=== PATIENT | male | born 1955 | race Caucasian/White ===

== ENCOUNTER 2017-02-11 10:36 | Emergency (ER) | payer MEDICARE ==
[~2017-02-11] VITALS: Ht 185.4 cm; Wt 85.0 kg
[2017-02-11 10:39] VITALS: BP 149/100; PULSE 100; RESP 16; O2SAT 96
[2017-02-11] MEDS ORDERED: HYDR-4003 PO (10:42)
--- NOTE | 2017-02-11 10:47 | ED.REPORT ---
HPI-Chest Pain 40 and Over Date of Service Feb 11, 2017 ED Provider: Dr. Muir Pt is a 61 y/o male w/ a hx of presumed metastatic lung CA, every-day smoking, chronic back pain, presenting to the ED c/o worsening intermittent SOB onset last night. He c/o associated right-sided chest discomfort which is exacerbated by moderate-heavy exertion, orthopnea, anxiety, back pain which is chronic. He was diagnosed with presumed metastatic lung cancer on 12/28/[address] scan and since then has been experiencing intermittent episodes of SOB and mild-moderate chest discomfort which are often accompanied by anxiety. His CA diagnosis came after he went to his PCP Dr. Becker regarding his back pain at which time a CT was ordered. He has not met with an oncologist yet or had any sort of workup regarding his cancer because his PCP told him it was "too far progressed to treat and there is not much of a point to work it up". Records indicate he declined further workup/biopsy/oncology appointment/specific diagnosis multiple times confirming he wants quality of life rather than quantity of life. He was prescribed Vicodin and anti-anxiety medication has not been working as well as it usually does. Pt denies cough, sputum, fever, chills, nausea, vomiting, diarrhea. Nursing Notes Stated Complaint: CANCER-PAIN AND CANNOT SLEEP Chief Complaint: Chest Pain-Non Cardiac Nature Nursing Notes Reviewed: Yes Allergies: Coded Allergies: No Known Allergies (Unverified , 02/11/17) Scheduled Hydrocodone-Acetaminophen 5-325 mg (Hydrocodone-Acetaminophen 5-325 mg) 1 Each Tablet 1-2 TAB PO Q6H General Time Seen by MD: 10:47 Chief Complaint Shortness of breath Hx Obtained From: Patient Arrived By: Walk-in Sudden in Onset?: No Onset Occurred: 1 day ago Symptom Duration: Intermittent Location: : Chest right Quality: Painful Severity: Current: Mild Severity: Maximum: Moderate Recent Healthcare: Recent doctor visit, Recent testing, Previous diagnosis, Prior workup Similar Sx Previous: Yes Past Medical History Past Medical History Presumed metastatic lung cancer Chronic back pain Past Surgical History Appendectomy Smoking History Former Smoker Social History Alcohol Use: Denies alcohol use Drug Use: THC Ambulatory Status Independent Review of Systems Constitutional: Denies: Chills, Fever Respiratory: Reports: Shortness of breath, Denies: Non-productive cough Cardiovascular: Reports: Chest pain, Orthopnea, Denies: Edema, Palpitations GI: Denies: Abdominal pain, Diarrhea, Nausea, Vomiting Musculoskeletal: Reports: Back pain, Denies: Extremity pain Psychiatric: Reports: Anxiety Complete sys rev & neg: except as marked. Physical Exam Initial Vital Signs Vital Signs (First) Date Time Temp Pulse Resp B/P Pulse Ox O2 Delivery O2 Flow Rate FiO2 02/11/17 10:39 35.9 100 16 149/100 96 Room Air 02/11/17 12:11 2 Initial VS: Reviewed, Vital signs abnormal Head / Eyes: Atraumatic, Normocephalic, PERRL ENT: Mucous membranes moist, Conjunctiva normal, No scleral icterus Neck: Supple, Full range of motion Extremities: Vascular intact, Neuro intact, No swelling, No tenderness Skin: Warm, Dry, No cyanosis Neurologic: Alert, Oriented, Nonfocal Psychiatric: Mood/affect normal, Behavior normal, Normal thought content General/Constitutional: Awake, Alert, No acute distress, Cooperative, Not toxic appearing Respiratory / Chest: Atraumatic, No retractions, No stridor, No chest tenderness, No chest wall deformity, No crepitus Resp Distress / Stridor: Positive: Resp distress mild Absent breath sounds right lung Cardiovascular: Heart rate NL, Regular rhythm, Heart sounds NL, No gallop, No murmurs, No rubs, Cap refill not delayed, Peripheral circulation NL Abdomen: Atraumatic, Soft, Non-tender, No guarding, No rebound, No palpable mass Interpretation & Diagnostics Lab Results Interpretation Result Diagram: 02/11/17 1155 02/11/17 1155 Test 02/11/17 11:55 02/11/17 14:46 White Blood Count 10.3th/mm3 (3.8-10.1) Red Blood Count 5.93mil/mm3 (4.40-5.80) Hemoglobin 17.1g/dL (13.8-17.2) Hematocrit 50.5% (41.0-50.0) Mean Corpuscular Volume 85.2fL (81-100) Mean Corpuscular Hemoglobin 28.8pg (27.0-35.0) Mean Corpuscular Hemoglobin Concent 33.9% (32.0-37.0) Red Cell Distribution Width 13.9% (12.3-15.4) Platelet Count 464bil/L (150-400) Neutrophils (%) (Auto) 76.3% (40-74) Lymphocytes (%) (Auto) 11.8% (14-46) Monocytes (%) (Auto) 8.2% (4-12) Eosinophils (%) (Auto) 3.3% (0-5) Basophils (%) (Auto) 0.3% (0-3) Prothrombin Time 10.2sec (8.1-12.5) Prothromb Time International Ratio 0.95ratio Hold Urine Received (Received) Sodium Level 132mEq/L (134-144) Potassium Level 4.3mEq/L (3.5-5.2) Chloride Level 92mEq/L (97-108) Carbon Dioxide Level 21mmol/L (18-29) Blood Urea Nitrogen 12mg/dL (6-24) Creatinine 0.69mg/dL (0.76-1.27) Estimat Glomerular Filtration Rate 125mL/min (>59) Glucose Level 107mg/dL (60-99) Calcium Level 10.1mg/dL (8.5-10.1) Magnesium Level 2.1mg/dL (1.6-2.6) Total Bilirubin 0.4mg/dL (0.0-1.2) Aspartate Amino Transf (AST/SGOT) 20U/L (0-50) Alanine Aminotransferase (ALT/SGPT) 10U/L (0-44) Alkaline Phosphatase 107U/L (25-160) Lactate Dehydrogenase 283U/L (100-190) Troponin T 0.010ug/L (0.0-0.011) Total Protein 9.2g/dL (6.4-8.4) Albumin 4.3g/dL (3.4-5.0) Body Fluid Source Pleural fluid Body Fluid Color Red (Clear) Body Fluid Appearance Hazy Body Fluid WBC 2813/mm3 Body Fluid RBC 93689/mm3 Body Fluid Polynuclear WBCs 2% Body Fluid Lymphocytes 85% Body Fluid Monocytes 8% Body Fluid Eosinophils 5% Body Fluid Basophils 0% Body Fluid Lactate Dehydrogenase 416U/L Pleural Fluid Total Protein 5.0g/dL Pleural Fluid Glucose 80mg/dL ECG Interpretation Time: 11:36 Interpreted by: ED physician Normal ECG Interpretation: Normal ECG w/ rate of..., Normal rate, Normal sinus rhythm, No acute ischemic changes, Normal QRS, Normal axis, Normal intervals, Adequate tracing X-Ray Chest Interpretation Chest Xray Interpretation: IMPRESSION: 1. Large right-sided pleural effusion and associated atelectasis has increased significantly. Superimposed pneumonia cannot be excluded. 2. Right suprahilar mass probably is unchanged. 3. The left lung is well aerated. Dictated by: Jonh Juarez M.D. on 02/11/2017 at 11:30 Approved by: Jonh Juarez M.D. on 02/11/2017 at 11:33 View: Portable, 1 view Interpretation / Wet Read by: Interpret - Radiologist CT Chest Interpretation IMPRESSION: 1. Right upper lobe mass consistent with patient's known lung cancer increased in size compared to the prior study with increased bronchovascular encasement associated with narrowing of right upper lobe subsequent arterial branches. 2. Elsewhere, no evidence of central pulmonary embolism. 3. Increased large malignant right pleural effusion with increased pleural thickening consistent with metastatic disease. 4. Progression of osseous metastatic disease. 5. Confluent right hilar lymphadenopathy with bronchovascular encasement and postobstructive consolidation in the right lung. Unenlarged mediastinal lymph nodes also likely represent metastatic disease. Dictated by: Warren Palacio M.D. on 02/11/2017 at 13:14 Approved by: Warren Palacio M.D. on 02/11/2017 at 13:29 Study type: CT pulm angiogram Interpretation / Wet Read by: Interpret - Radiologist Procedures Pericardiocentesis THIS PROCEDURE IS A THORACENTESIS OF THE RIGHT LUNG THERE IS NO PROCEDURE NOTE FOR A THORACENTESIS THIS WAS USED THE CLOSEST SUBSTITUTE. Time: 13:44 Procedure Performed by: ED physician Consent / Setup / Site Prep: Informed consent provided, Consent from patient, Time-out performed, Oxygen administered, Pulse oximeter applied, cloth layer applied, Hand hygiene observed, Stand sterile technique, Sterile drapes applied Indication: Other (Hypoxia, dyspnea) Local Anesthesia: Lidocaine 1% Procedural Sedation/Analgesia: Analgesia: Fentanyl Guidance / Aspirate Character: Ultrasound guidance, Aspirate amount (1500), Aspirate serosanguinous Complications: None Post-Procedure: Condition improved, Tolerated procedure well, Patient stable Re-Eval/Medical Decision Med Decision/Clinical Course Symptomatic malignant pleural effusion with associated hypoxia, drained at the bedside under sterile conditions. Patient is clinically feeling much better, hypoxia has resolved, no postprocedural pneumothorax. of further social note, this patient was recently diagnosed with lung cancer and has up until this point been resistant to any medical treatment or referral to oncology. Coordination is made with oncology to see him next week as he is now more amenable to seek treatment and diagnostic options. Time of Eval: 11:35 Re-Evaluation/Progress Note: Discussed whether or not he would like to have workup of his presumed lung cancer today. He agrees that he would like a full workup as well as a referral to oncology. Time of Eval: 12:49 Re-Evaluation/Progress Note: I recommended that the patient have a therapeutic thoracentesis because he is now requiring oxygen but he is declining this at the moment. Time of Eval: 13:30 Re-Evaluation/Progress Note: Pt rechecked. After showing the patient his CT scan, he agrees with plan to perform a thoracentesis. Consultation #1: Referral / Consult Name: Kaur Becker DO Consulted With: Primary care physician Call Returned at: 11:30 Wafer Production Worker: Agrees with evmaris, Agrees with plan Note: She reiterates what her clinic note says that the patient did not want workup of the presumed lung CA at that time. Consultation #2: Referral / Consult Name: Jani Awan MD Call Returned at: 14:27 Wafer Production Worker: Agrees with evmaris, Agrees with plan Note: Case discussed with oncology. He will see the patient on February 16. Counseled Regarding: Diagnosis, Lab results, Need for follow-up, When/why to return to ED Discharge & Departure Primary Impression: Mass of right lung Additional Impression: Pleural effusion, right Disposition: Home Discharge Condition All VS Reviewed: Yes Condition: Stable Additional Instructions: I am glad you are feeling better. Follow-up with the cancer doctor, Dr. Awan, next week. He said he could see you on Wednesday. I hope that you have you can come up with a better answer in terms of treatment for a lung cancer. Some fluid studies were sent on your chest fluid, these can be followed up by Dr. Awan. Continue taking a regular pain medicine. Return to the ER if you develop severe chest pain, trouble breathing, high fever , or any other concerns. Referrals: Kaur Becker George F MD Scribe Attestation Portions of this note were transcribed by Wei Valdez. I, Dr. Muir personally performed the history, physical exam and medical decision-making; I reviewed and confirmed the accuracy of the information in the transcribed note. Signed by Michael Hernandez, 02/11/17 - 0380 copies to: Kaur Becker DO; Jani Awan MD, Timothy S DO Feb 11, 2017 10:47 WEI VALDEZ Feb 11, 2017 11:04
[2017-02-11 12:07] LABS: BASOPHILS % (AUTO) 0.3 % (0-3); EOSINOPHILS % (AUTO) 3.3 % (0-5); MONOCYTES % (AUTO) 8.2 % (4-12); Mean Corpuscular Hemoglobin 28.8 pg (27.0-35.0); Mean Corpuscular Volume 85.2 fL (81-100); NEUTROPHILS % (AUTO) 76.3 % (40-74); Platelet Count 464 bil/L (150-400)
[2017-02-11 12:10] VITALS: BP 142/95; PULSE 99; RESP 22; O2SAT 88
[2017-02-11 12:11] VITALS: O2SAT 95
[2017-02-11 12:21] LABS: INR 0.95 ratio
[2017-02-11 12:29] LABS: TROPONIN T 0.01 ug/L (0.0-0.011)
--- NOTE | 2017-02-11 12:34 | DRSVH ---
PROCEDURE: X-RAY CHEST ONE VIEW, PORTABLE ([id number]) INDICATIONS: dyspnea TECHNIQUE: One view of the chest was acquired. COMPARISON: [facility], CT, CT CHEST WO CON, 12/28/2016, 14:18. FINDINGS: Surgical changes and devices: None. Lungs and pleura: Prominent interval decrease in degree of right pulmonary aeration is noted with a l arge area of consolidation/opacification involving the right lung base which obscures the right diaph ragm. Additional areas of fluid within the right hemithorax are present extending along the right la teral chest wall and major fissure. There probably is complete right middle lobe collapse. Intersti tial prominence within the right perihilar region with the patient's known right suprahilar mass pres ent. The aeration of the left lung is within normal limits without focal consolidation, effusion, or pneumothorax. Mediastinum: Mediastinal contours appear normal. Heart size is normal. There is aortic atheroscler osis. Bones and chest wall: No suspicious bony lesions. The subtle lesions within the right scapula and 4 th right rib are not well evaluated on this exam. Overlying soft tissues appear unremarkable. IMPRESSION: 1. Large right-sided pleural effusion and associated atelectasis has increased significantly. Super imposed pneumonia cannot be excluded. 2. Right suprahilar mass probably is unchanged. 3. The left lung is well aerated. Dictated by: Jonh Juarez M.D. on 02/11/2017 at 11:30 Approved by: Jonh Juarez M.D. on 02/11/2017 at 11:33
[2017-02-11 12:40] LABS: Magnesium 2.1 mg/dL (1.6-2.6)
[2017-02-11] MEDS ORDERED: fentaNYL-PF 50 mCg/mL 2 mL Inj IVPUSH ONE ×2 (13:30→14:40)
--- NOTE | 2017-02-11 13:30 | DRSVH ---
PROCEDURE: CT ANGIO CHEST PULMONARY EMBOLISM ([id number]) INDICATIONS: Dyspnea and history of lung cancer TECHNIQUE: After the administration of intravenous contrast, 2 mm thick sections acquired from the pulmonary api irma to the posterior costophrenic angles. 3-dimensional maximum intensity projection (MIP) coronal a nd sagittal reformats were then acquired through the thorax. For radiation dose reduction, the follo wing was used: automated exposure control, adjustment of mA and/or kV according to patient size. COMPARISON: [facility], CT, CT CHEST WO CON, 12/28/2016, 14:18. FINDINGS: Image quality: Excellent. Pulmonary arteries: There is narrowing of right upper lobe pulmonary arterial branches by the patien t's known right upper lobe mass. Remaining pulmonary arteries demonstrate no intraluminal filling de fects to suggest central pulmonary embolism. Lungs and pleura: The medial right upper lobe mass appears increased in size compared to the prior st udy, measuring 7.8 x 3.8 cm in transverse dimension by approximately 6.5 cm in craniocaudal dimension . There is extension along the pleura and pericardium medially as well as extension to the right hil um with associated bronchovascular encasement and narrowing. There is postobstructive consolidation and atelectasis demonstrated in the right upper, middle, and lower lobes. There is a large right ple ural effusion, increased from the prior study, with pleural thickening along the right hemithorax whi ch also appears increased. Nodular foci thickening along the pleura also again noted. The left lung demonstrates mild atelectasis without effusions or discrete mass lesions. Mediastinum: Heart size is normal, without pericardial effusion. Thoracic aorta is normal in calibe r and enhancement. There are multiple prominent lymph nodes including a precarinal node measuring up to 1.1 cm in short axis. There is also confluent right hilar tobin soft tissue with associated bron chovascular encasement. Esophagus is normal in caliber, without hiatal hernia. Bones and chest wall: There are multiple lytic bony lesions including within the right 4th and 6th ri bs, the left 3rd rib, and inferior left scapula which have increased in size and number from the prio r study and are consistent with metastatic disease. Ribs and thoracic spine appear intact throughout . Thyroid gland demonstrates no discrete nodules. No axillary or supraclavicular adenopathy. Abdomen: Visualized upper abdomen demonstrates marked enlargement of the right adrenal gland suspici ous for metastatic disease. IMPRESSION: 1. Right upper lobe mass consistent with patient's known lung cancer increased in size compared to t he prior study with increased bronchovascular encasement associated with narrowing of right upper lob e subsequent arterial branches. 2. Elsewhere, no evidence of central pulmonary embolism. 3. Increased large malignant right pleural effusion with increased pleural thickening consistent wit h metastatic disease. 4. Progression of osseous metastatic disease. 5. Confluent right hilar lymphadenopathy with bronchovascular encasement and postobstructive consoli dation in the right lung. Unenlarged mediastinal lymph nodes also likely represent metastatic diseas e. Dictated by: Warren Palacio M.D. on 02/11/2017 at 13:14 Approved by: Warren Palacio M.D. on 02/11/2017 at 13:29
--- NOTE | 2017-02-11 14:48 | DRSVH ---
PROCEDURE: X-RAY CHEST ONE VIEW, PORTABLE ([id number]) INDICATIONS: post thoracentesis done in ED TECHNIQUE: One view of the chest was acquired. COMPARISON: [facility], CT, CT ANGIO CHEST PE, 02/11/2017, 12:42. FINDINGS: Surgical changes and devices: None. Lungs and pleura: Decreased size of right pleural effusion and no pneumothorax is present. Right upp er lobe lung mass redemonstrated. Left lung is clear. Mediastinum: Mediastinal contours appear normal. Heart size is normal. Bones and chest wall: No suspicious bony lesions. Overlying soft tissues appear unremarkable. IMPRESSION: No pneumothorax post recent right thoracentesis with decrease in size of right pleural ef fusion. Dictated by: Timothy Euceda RRA Interpreted: Carol Lincoln MD on 02/11/2017 at 14:47 Transcribed by: CRISTHIAN on 02/11/2017 at 14:48 Approved by: Carol Lincoln MD, PhD on 02/11/2017 at 16:28
[2017-02-11 14:50] VITALS: BP 131/93; PULSE 93; RESP 19; O2SAT 95
[2017-02-11 15:24] VITALS: BP 131/93; PULSE 93; RESP 19; O2SAT 95
[2017-02-11 16:05] LABS: BFWBC 2813 /mm3; MONOCYTES,BODY FLUID 8 %; OTHER CELLS,BODY FLUID 0
--- NOTE | 2017-02-16 13:41 | PATH ---
SURGICAL PATHOLOGY Attending Physician:Jani Awan M.D. CASE STATUS: Signed Out PATIENT NAME: SHANIKA CROOK PID: [id number] : 1955 DATE COLLECTED:02/11/2017 00:00 SPECIMEN: Pleural fluid CLINICAL HISTORY: Pleural Fluid No ICD-10 code given FINAL DIAGNOSIS: Pleural Fluid Cytology Specimen (Cell Block, ThinPrep and Cytospin): Positive for malignant epithelial cells consistent with metastatic adenocarcinoma (see microscopic description and comment. ICD10 J91.0 NOTE: It is recognized that this patient has a clinical diagnosis of primary carcinoma of the lung. The cells present within this pleural fluid would be consistent with metastasis from that primary site, although the morphology is not specific. Because of the paucity of malignant cells present within this material, additional immunohistochemistry studies are not performed. If, however, such studies are desired, they can be ordered separately. GROSS DESCRIPTION: Received fresh on 02/12/2017 is approximately 16 cc of clear yellow fluid. Prepared are one cell block, one cytospin, and one ThinPrep slides. vo/hk MICRO DESCRIPTION: This is a pleural fluid cytology preparation in which a rare group of malignant appearing cells are noted on the ThinPrep and also a few groups of similar cells are present in the cell block preparation. Immunohistochemistry is performed in an attempt to ascertain whether these are of epithelial or mesothelial origin. Immunohistochemistry Results: BerEP4:Cells in question are positive indicating they are of epithelial origin and therefore consistent with metastatic carcinoma. Calretinin:Cells in question are negative, ruling out mesothelial origin. ICD-9 CODES: CPT CODES: 1: 67432, 59172, 43743, 99918, 51048 PROCEDURE/ADDENDA: Addendum SPI Addendum Diagnosis PD-L1 Immunohistochemistry Analysis--Cancellation Interpretation: Insufficient tumor cells preclude evaluation of PD-L1 Immunohistochemical Analysis in the submitted material. At least 100 viable tumor cells are required for interpretation. TEST: EGFR Cancellation Unable to perform: Less than 5% neoplastic tumor cellularity is noted in the submitted specimen. TEST: FISH ALK Analysis Result: No Evidence of ALK Gene Rearrangement Detected by FISH nuc jay(ALKx2)[50] TEST: FISH TargetGene Analysis RESULT: Negative for ROS1 gene rearrangement Addendum Comment Please see [facility] Reports for complete details. [id number] Testing and Interpretation by [facility], [place], [place]. Testing requested by Dr. Jani Awan, [facility]. Electronically Signed Out Diogenes Sparrow MD Electronically Signed Out Diogenes Sparrow MD [facility] [address], [place] [address] Technical component performed at [facility], [address], [place], [address]
[2017-03-16] MEDS ORDERED: [UNRECOGNIZED DRUG - CODE] PO (10:41)
[2017-03-16] MEDS ORDERED: ONDA4TAB6 PO (10:41)
[2017-03-16] MEDS ORDERED: POLY17PO2 PO (10:41)
== END 2017-02-11 15:25 | disposition home or self-care (01) ==
LOC: SED 10:36
DX: C34.90 Malignant neoplasm of unspecified part of unspecified bronchus or lung (principal); J90 Pleural effusion, not elsewhere classified; F17.200 Nicotine dependence, unspecified, uncomplicated; M54.9 Dorsalgia, unspecified; G89.29 Other chronic pain
CPT/HCPCS: 33010; 36415; 71010; 71275; 80053; 82945; 83615; 83735; 84484; 85025; 85610; 87070; 87075; 87205; 88112; 88305; 88341; 88342; 89051; 93005; 96374; 96375; 96376; 99285; J2270; J3010; Q9967

== ENCOUNTER 2017-03-09 09:27 | Inpatient (IN) | payer MEDICARE ==
[2017-03-09] VITALS (14 sets, daily range): BP systolic 109–140; BP diastolic 75–90; PULSE 92–109; RESP 16–20; O2SAT 90–96
[~2017-03-09] VITALS: Ht 185.4 cm; Wt 73.4 kg
[~2017-03-09 09:27] MED LIST: HYDR-4003 PO
--- NOTE | 2017-03-09 09:45 | ED.REPORT ---
HPI-General Illness Date of Service Mar 09, 2017 ED Provider: Marlon Garza MD A 61 year old male with a history of untreated metastatic lung cancer that has spread to ribs, ischium, and proximal femur presents to the ED complaining of right sided chest pain that wraps around into his back. He also reports "possible fluid in lungs". He reports almost daily baseline chest pain. Associated symptoms include progressive subjective fever, SOB and productive cough onset 2 weeks ago, but he reports symptoms have been present at some degree for the last few months. Per , patient has felt hot and cold. Patient reports baseline bone pain from the cancer, and nausea. He also has baseline difficulty sleeping and does not usually feel rested each night. He denies any vomiting. He visited ED on 02/11/17 and required thoracentesis of the right lung , the patient feeling like fluid has been progressively building since then. However current pain does not feel like it did during that ED visit. He has been taking 5mg hydrocodone at home , 2 doses every 6 hours, with relief only lasting for1-1.5 hours. The patient recently had an oncology consultation but is unsure if he wants to move forward with cancer treatment. He recently tried morphine, but experienced adverse reactions and does not want to try that medication anymore. He does not use Oxygen at home. Nursing Notes Stated Complaint: POSSIBLE FLUID ON LUNGS Chief Complaint: General Complaint Nursing Notes Reviewed: Yes Allergies: Coded Allergies: morphine (Verified Allergy, Unknown, INSOMNIA PER PATIENT, 02/25/17) PATIENT WAS GIVEN PO - STATES IT CAUSED INSOMNIA AND HE WAS UNABLE TO SLEEP, NO RASHES Scheduled Hydrocodone-Acetaminophen 5-325 mg (Hydrocodone-Acetaminophen 5-325 mg) 1 Each Tablet 1-2 TAB PO Q6H General Time Seen by MD: 09:45 Chief Complaint Chest pain (right sided) Hx Obtained From: Patient Arrived By: Walk-in Sudden in Onset?: No Onset Occurred: More than a week ago... (2 weeks) Symptom Duration: Since onset Location: : Chest (right sided) Severity: Current: Severe Severity: Maximum: Severe Recent Healthcare: Recent doctor visit Similar Sx Previous: Yes Past Medical History Past Medical History Notes: Dr. Awan oncology appointment 02/27/17 ED visit 02/11/17 for SOB, had thoracentesis of the right lung performed No meds besides pain medication. Past Medical History Presumed metastatic lung cancer, spread to ribs, ischium, and proximal femur. Chronic back pain. Denies: Diabetes mellitus Past Surgical History Reports: Appendectomy (2011) Smoking History Former Smoker Social History Alcohol Use: Denies alcohol use Drug Use: THC Ambulatory Status Independent Review of Systems possible fluid in lungs. baseline bone pain. Difficulty sleeping. Full Review of Systems Constitutional: Reports: Fever (subjective) Respiratory: Reports: Prod cough, clear, Shortness of breath Cardiovascular: Reports: Chest pain (right sided) GI: Reports: Nausea, Denies: Vomiting Musculoskeletal: Reports: Back pain Complete sys rev & neg: except as marked. Physical Exam dec breath sounds on right Vital Signs Vital Signs Date Time Temp Pulse Resp B/P Pulse Ox O2 Delivery O2 Flow Rate FiO2 03/09/17 16:18 98 20 123/81 95 Room Air 03/09/17 15:48 104 20 119/81 94 03/09/17 15:16 94 16 123/89 95 Room Air 03/09/17 15:01 102 20 119/80 94 Room Air 03/09/17 12:30 92 18 109/79 94 Room Air 03/09/17 09:31 36.0 100 18 140/90 96 Room Air Initial VS: Reviewed General/Constitutional: Awake, Alert Head / Eyes: Atraumatic, Normocephalic, PERRL, EOMI ENT: Atraumatic, Mucous membranes moist Diminished Breath Sounds: Positive: Decreased R (Decreased breath sounds in right lung gordon. Dull to percussion in all right lung gordon. ) Cardiovascular: Heart rate NL, Regular rhythm, Heart sounds NL, No gallop, No murmurs, No rubs Abdomen: No guarding, No rebound Skin: Atraumatic, Color NL, Warm, Dry Neurologic: Oriented X3, Speech NL Interpretation & Diagnostics Lab Results Interpretation Result Diagram: 03/09/17 1013 03/09/17 1013 Test 03/09/17 10:13 03/09/17 12:55 White Blood Count 11.2th/mm3 (3.8-10.1) Red Blood Count 5.47mil/mm3 (4.40-5.80) Hemoglobin 15.4g/dL (13.8-17.2) Hematocrit 46.2% (41.0-50.0) Mean Corpuscular Volume 84.5fL (81-100) Mean Corpuscular Hemoglobin 28.2pg (27.0-35.0) Mean Corpuscular Hemoglobin Concent 33.3% (32.0-37.0) Red Cell Distribution Width 14.0% (12.3-15.4) Platelet Count 452bil/L (150-400) Neutrophils (%) (Auto) 78.0% (40-74) Lymphocytes (%) (Auto) 7.6% (14-46) Monocytes (%) (Auto) 9.2% (4-12) Eosinophils (%) (Auto) 4.5% (0-5) Basophils (%) (Auto) 0.3% (0-3) Prothrombin Time 10.4sec (8.1-12.5) Prothromb Time International Ratio 0.97ratio Sodium Level 129mEq/L (134-144) Potassium Level 4.8mEq/L (3.5-5.2) Chloride Level 90mEq/L (97-108) Carbon Dioxide Level 21mmol/L (18-29) Blood Urea Nitrogen 10mg/dL (6-24) Creatinine 0.66mg/dL (0.76-1.27) Estimat Glomerular Filtration Rate 131mL/min (>59) Glucose Level 99mg/dL (60-99) Calcium Level 10.2mg/dL (8.5-10.1) Total Bilirubin 0.4mg/dL (0.0-1.2) Aspartate Amino Transf (AST/SGOT) 18U/L (0-50) Alanine Aminotransferase (ALT/SGPT) 10U/L (0-44) Alkaline Phosphatase 96U/L (25-160) Troponin T < 0.010ug/L (0.0-0.011) Pro-B-Type Natriuretic Peptide 82.89pg/mL (0-210) Total Protein 8.2g/dL (6.4-8.4) Albumin 3.6g/dL (3.4-5.0) Hold Vicente Top Tube Received (Received) Urine Color Red (YELLOW) Urine Appearance Turbid (CLEAR,HAZY) Urine pH 7.5 (5.0-8.0) Urine Specific [place] 1.015 (1.003-1.035) Urine Protein 300mg/dL (NEG,TRACE) Urine Glucose (UA) 100mg/dL (NEGATIVE) Urine Ketones Negativemg/dL (NEGATIVE) Urine Occult Blood Large (NEGATIVE) Urine Nitrite Negative (NEGATIVE) Urine Bilirubin Negative (NEGATIVE) Urine Urobilinogen Normalmg/dL (NORMAL) Urine Leukocyte Esterase Trace (NEGATIVE) Urine RBC Packed/hpf (0-2) Urine WBC 11-50/hpf (0-5) Urine Epithelial Cells Occasional/hpf (NONE-MOD) Urine Crystals None seen (NONE SEEN) Urine Bacteria Few/hpf (NONE-FEW) Urine Hyaline Casts None/lpf (NONE) Urine Granular Casts None seen (NONE SEEN) Urine Waxy Casts None seen (NONE SEEN) Urine Red Blood Cell Casts None seen (NONE SEEN) Urine White Blood Cell Casts None seen (NONE SEEN) Urine Mucus None seen (None Seen) Urine Trichomonas None seen (NONE SEEN) Urine Yeast None (NONE SEEN) Urinalysis Comment None Urine Culture Reflexed Indicated ECG Interpretation ECG Interpretation: Rate is 93. Sinus rhythm. Atrial premature complex. Time: 11:00 Interpreted by: ED physician X-Ray Chest Interpretation Chest Xray Interpretation: IMPRESSION: Increased right pleural effusion when compared with the prior study. Dictated by: Lny Mckeon M.D. on 03/09/2017 at 10:32 Approved by: Lyn Mckeon M.D. on 03/09/2017 at 10:33 Interpretation / Wet Read by: Interpret - Radiologist Chest Xray Interpretation: IMPRESSION: Moderate right pneumothorax. The above findings were discussed with Dr. Marlon Garza on 03/09/17 at 12:03pm. Dictated by: Ofelia Barbosa M.D. on 03/09/2017 at 12:12 Approved by: Ofelia Barbosa M.D. on 03/09/2017 at 12:16 Interpretation / Wet Read by: Interpret - Radiologist CT Chest Interpretation PROCEDURE: 1. CT guided right-sided chest tube placement. 2. Conscious sedation x20 minutes. IMPRESSION: 1. CT-guided right-sided chest tube placement for pneumothorax. 2. Extensive right lung opacity and overlying pleural caking, which may limit right lung expansion/pneumothorax evacuation. 3. Multiloculated right pleural effusion. Dictated by: Yasmany Becerra M.D. on 03/09/2017 at 14:56 Approved by: Yasmany Becerra M.D. on 03/09/2017 at 15:00 Interpretation / Wet Read by: Interpret - Radiologist Procedures Pericardiocentesis THIS PROCEDURE IS A THORACENTESIS OF THE RIGHT LUNG Bloody fluid retrieved. Indication: Large right pleural effusion, symptomatic. Complications: Right pneumothorax. Procedural sedation: None Time: 11:20 Procedure Performed by: ED physician Consent / Setup / Site Prep: Consent from patient, Time-out performed, Pulse oximeter applied, environmental monitoring specialist applied, Hand hygiene observed, Stand sterile technique, Sterile drapes applied, Patient sitting up Skin Preparation Agent: Hibiclens - Chlorhexidine Local Anesthesia: Lidocaine 1% (no epi) Needle Gauge / Length: 16 gauge Guidance / Aspirate Character: Ultrasound guidance Post-Procedure: Condition improved, Tolerated procedure well, Patient stable Re-Eval/Medical Decision Med Decision/Clinical Course The patient felt like he did not want to talk to any more doctors today after his lengthy ER stay and thoracentesis and tube thoracostomy. Pain management is his primary concern now. He did not want to answer my questions or make a decision regarding his CODE STATUS so I deferred and made him full code for now. I told him that tomorrow would be a good time to have a palliative care consultation. I believe this gentleman needs aggressive pain management with narcotic analgesics. Source of Hx: Old records Time of Eval: 10:51 Patient Status: Condition improved Re-Evaluation/Progress Note: Rechecked patient who reports that their pain is significantly improved. Explained plan to drain right side pending normal platelet count test results. Explained plan to perform blood cultures becasue of the patient's subjective fever.Explained consult with Dr. Awan and that cancer will probably kill the patient and that he may have extended 6 months of relatively comfortable life with treatment. Explained that Dr. Awan thinks that without treatment, patient is expected to live 6 months less than if he had treatment. Explained that Dr. Awan is willing to treat the patient with immunotherapy and radiation. Explained that the cancer medications proposed by Dr. Awan are normally well tolerated and nontoxic. Explained that hospice care is another option if the patient does not want to pursue cancer treatment. Explained that he cannot do both hospice and cancer treatment at the same time. Patient reports that he does not feel pressured to choose either option. Time of Eval: 11:20 Patient Status: Condition improved Re-Evaluation/Progress Note: Performed thoracentesis of the right lung procedure. Time of Eval: 11:50 Re-Evaluation/Progress Note: Recehcked patient who is awake and alert. Patient wants pain medications. Time of Eval: 12:01 Patient Status: Condition improved Re-Evaluation/Progress Note: Rechecked patient who reports that he feels better. Explained that patient may have pneumothorax. Time of Eval: 12:17 Patient Status: Condition improved Re-Evaluation/Progress Note: Rechecked patient, explained plan for thoracostomy to be performed in IR. Time of Eval: 12:35 Re-Evaluation/Progress Note: Rechecked patient. He is receptive to chest tube procedure. Time of Eval: 14:53 Re-Evaluation/Progress Note: Rechecked patient. Explained plan for admission and plan for him to be visited by surgeon in hospital. Patient understands and agrees with the plan. All questions addressed. Consultation #1: Referral / Consult Name: Jani Awan MD Call Returned at: 10:12 Aquatic Ecologist: Will see patient (if patient wants to) Note: Discussed patient case with Dr. Awan, oncologist who reports that patient came in to his office kicking and screaming, did not want to see Dr. Awan. Dr. Awan thinks he can help him quite a bit but cannot cure him. Dr. Awan thinks he can give the patient 6 months longevity with decreased toxiocity, and is willing to see the patient today. Consultation #2: Call Returned at: 11:59 Note: Discussed patient case with oncology. Asked if Dr. Awan would like any additional testing done on fluid. They will call back. Consultation #3: Referral / Consult Name: Lou Concepcion MD Consulted With: Surgeon Call Returned at: 12:14 Note: Discussed patient case with Dr. Concepcion, Surgeon who will talk with radiologist and decide which type of ches tube to use for thoracostomy. Consultation #4: Referral / Consult Name: Lou Concepcion MD Consulted With: Surgeon Call Returned at: 12:19 Note: Discussed patient case with Dr. Concepcion. Consultation #5: Referral / Consult Name: Lou Concepcion MD Consulted With: Surgeon Call Returned at: 15:07 Aquatic Ecologist: Will see patient Note: Discussed patient case with Dr. Concepcion who agrees to see the patient as a consult while patient is in the hospital. Consultation #6: Referral / Consult Name: Elijah Kilgore Consulted With: Hospitalist Call Returned at: 15:57 Aquatic Ecologist: Accepts admit Note: Discussed patient case with Dr. Kilgore who accepts patient admit. Counseled Regarding: Diagnosis, Lab results, Need for follow-up, When/why to return to ED Discharge & Departure Primary Impression: Pleural effusion, right Additional Impressions: Pneumothorax Metastatic cancer to lung Disposition: ADMITTED TO HOSPITAL Discharge Condition All VS Reviewed: Yes Condition: Improved Referrals: Kaur Becker DO (PCP) Jani Awan MD Attestation Portions of this note were transcribed by Stan Cross. I, Dr. Garza personally performed the history, physical exam and medical decision-making; I reviewed and confirmed the accuracy of the information in the transcribed note. Signed by: Michael Mary, 03/09/2017, 1600. copies to: Kaur Becker DO; Jani Awan MD, Kirk H MD Mar 09, 2017 09:45 Stan Cross Mar 09, 2017 09:49
[2017-03-09] MEDS ORDERED: HYDROmorphone 1 mg/mL Inj IVPUSH ONE ×4 (10:00→16:25)
[2017-03-09] MEDS ORDERED: oxyCODONE-Acetamin 10-325 mg Tablet PO ONE (10:00)
--- NOTE | 2017-03-09 10:34 | DRSVH ---
PROCEDURE: X-RAY CHEST, TWO VIEWS ([id number]) INDICATIONS: dyspnea TECHNIQUE: 2 views of the chest were acquired. COMPARISON: [facility], CR, XR CHEST 1VW (PORTABLE), 02/11/2017, 14:24. [facility], CR, XR CHEST 1VW (PORTABLE), 02/11/2017, 12:06. FINDINGS: Surgical changes and devices: None. Lungs and pleura: The right pleural effusion is increased in size when compared with the prior compar rosie dated 02/11/17. Left lung is clear. No pneumothorax. Mediastinum: Mediastinal contours are normal. Heart size is normal. Bones and chest wall: No suspicious bony abnormalities. Soft tissues appear unremarkable. IMPRESSION: Increased right pleural effusion when compared with the prior study. Dictated by: Lyn Mckeon M.D. on 03/09/2017 at 10:32 Approved by: Lyn Mckeon M.D. on 03/09/2017 at 10:33
[2017-03-09 10:54] LABS: BASOPHILS % (AUTO) 0.3 % (0-3); EOSINOPHILS % (AUTO) 4.5 % (0-5); MONOCYTES % (AUTO) 9.2 % (4-12); Mean Corpuscular Hemoglobin 28.2 pg (27.0-35.0); Mean Corpuscular Volume 84.5 fL (81-100); Platelet Count 452 bil/L (150-400)
[2017-03-09 11:29] LABS: TROPONIN T < 0.010 ug/L (0.0-0.011)
--- NOTE | 2017-03-09 12:17 | DRSVH ---
PROCEDURE: X-RAY CHEST ONE VIEW, PORTABLE ([id number]) INDICATIONS: post thoracentesis TECHNIQUE: One view of the chest was acquired. COMPARISON: [facility], CR, XR CHEST 2VW, 03/09/2017, 9:50. FINDINGS: Surgical changes and devices: None. Lungs and pleura: There is a moderate right pneumothorax without midline shift. Mild pleural effusion is present. Mediastinum: Mediastinal contours appear normal. Heart size is normal. Bones and chest wall: No suspicious bony lesions. Overlying soft tissues appear unremarkable. IMPRESSION: Moderate right pneumothorax. The above findings were discussed with Dr. Marlon Garza on 03/09/17 at 12:03pm. Dictated by: Ofelia Barbosa M.D. on 03/09/2017 at 12:12 Approved by: Ofelia Barbosa M.D. on 03/09/2017 at 12:16
[2017-03-09 12:29] LABS: INR 0.97 ratio
[2017-03-09] MEDS ORDERED: fentaNYL-PF 50 mCg/mL 2 mL Inj ONE (13:00)
[2017-03-09] MEDS ORDERED: Flumazenil 0.1 mg/mL 5 mL Inj IV ONE (13:01)
[2017-03-09 13:27] LABS: APPEARANCE,URINE TURBID (CLEAR,HAZY); COLOR,URINE RED (YELLOW); PH,URINE 7.5 (5.0-8.0)
[2017-03-09 13:28] LABS: OCCULT BLOOD,URINE LARGE (NEGATIVE); UROBILINOGEN,URINE NORMAL (NORMAL)
--- NOTE | 2017-03-09 15:02 | DRSVH ---
PROCEDURE: 1. CT guided right-sided chest tube placement. 2. Conscious sedation x20 minutes. INDICATIONS: Pneumothorax COMPARISON: [facility], CT, CT ANGIO CHEST PE, 02/11/2017, 12:42. TECHNIQUE: Informed, written consent from the patient was obtained prior to the procedure. Patient wa s brought to the angiography suite, and conscious sedation was administered intravenously by custodial staff, while continuous cardiorespiratory monitoring was performed. Maximal sterile barrier t echnique, hand hygiene, skin preparation, and sterile ultrasound technique (if ultrasound was utilize d) was followed. A mask, sterile gown, sterile gloves, a large sterile sheet, hand hygiene, and 2% ch lorhexidine or iodine was utilized for skin antisepsis. The right anterolateral chest wall was preppe d and draped sterilely, and the skin and subcutaneous tissues overlying the right chest were infused with lidocaine. The right pleural space was accessed under CT guidance with an 18 gauge needle, throu gh which an 035 J-wire was advanced. An 8 American dilator was advanced followed by advancement of an 8 American pigtail drainage catheter. FINDINGS: Moderate pneumothorax is present. At the conclusion of the procedure, a chest tube pigtail is present within the right anteroinferior pleural space. There is extensive patchy right lung opaci ty, as well as pleural caking overlying the right lung surface. Multiloculated fluid within the right inferior chest. IMPRESSION: 1. CT-guided right-sided chest tube placement for pneumothorax. 2. Extensive right lung opacity and overlying pleural caking, which may limit right lung expansion/pn eumothorax evacuation. 3. Multiloculated right pleural effusion. Dictated by: Yasmany Becerra M.D. on 03/09/2017 at 14:56 Approved by: Yasmany Becerra M.D. on 03/09/2017 at 15:00
--- NOTE | 2017-03-09 15:53 | NUR ---
SAGE Patient care assumed in CT for conscious sedation chest tube placement at 1400. ED MD and patient reports he last ate at approx 0600. Baseline VS: BP 119/83, HR 95, SPO2 on RA 98%. Pain 8/10. Fentanyl 50 mcg IVP and versed 1 mg IVP given during procedure. Procedure complete at 1430. VS: BP 115/71, HR 97 SPO2 on RA 95%. Pain 7/10. Accompanied patient back to ED and report given to receiving RN.
[2017-03-09] MEDS ORDERED: Ondansetron 2 mg/mL 2 mL Inj IVPUSH PRN ×2 (16:30→18:35)
[2017-03-09] MEDS ORDERED: Alum-Mag Hydrox-Simeth 30 mL Suspension PO PRN ×2 (16:30→18:35)
--- NOTE | 2017-03-09 17:41 | NUR ---
Admit report provided by doreen BEAUCHAMP. Pt admitted at 1710. Pain 12/25. VSS. Tele placed. Oriented to room. Call light in place. Order placed for chest tube to LIWS. Chest tube site c/d/i, placed on LIWS. Will continue to monitor.
[2017-03-09] MEDS: HYDROmorphone PCA 0.2 mg/mL 30 mL Inj IV PRN (17:57)
[2017-03-09] MEDS ORDERED: 0.9% Sodium Chloride 250 ML ONE (18:00)
--- NOTE | 2017-03-09 18:25 | NUR ---
chest tube Per MD, to change CT to continuous wall suction. MD aware of markedly decreased breath sounds to all 3 lobes of right lung in comparison to left. per MD at 1835, requests that pt be placed in trendelenberg position with pt coughing/ deep breathing to assist with removal of air. In trendelenberg, air bubbles increased in chest tube water seal chamber x about 3 to 4 minutes. To continue to monitor. Pt denies SOB at rest or in position.
--- NOTE | 2017-03-09 18:30 | DRSVH ---
PROCEDURE: X-RAY CHEST ONE VIEW, PORTABLE ([id number]) INDICATIONS: Interval chest tube placement pnx TECHNIQUE: One view of the chest was acquired. COMPARISON: [facility], CR, XR CHEST 1VW (PORTABLE), 03/09/2017, 11:49. [facility], CR, XR CHEST 2VW, 03/09/2017, 9:50. FINDINGS: Surgical changes and devices: Pigtail catheter within the right inferior pleural space is present. Lungs and pleura: Small right pleural effusion. Decreased, small to moderate right pneumothorax. No c hange in multifocal patchy right-sided pulmonary opacities. Mediastinum: Mediastinal contours appear normal. Heart size is normal. Bones and chest wall: No suspicious bony lesions. Overlying soft tissues appear unremarkable. IMPRESSION: Decreasing right pneumothorax. Dictated by: Yasmany Becerra M.D. on 03/09/2017 at 18:28 Approved by: Yasmany Becerra M.D. on 03/09/2017 at 18:28
--- NOTE | 2017-03-09 18:40 | PCM.HPMED ---
Subjective Date of Service Mar 09, 2017 Primary Provider: Admitting Physician: Elijah Kilgore Primary Care Physician: Kaur Becker DO Attending Physician: Elijah Kilgore Chief Complaint: right sided chest pain and shortness of breath History of Present Illness: 61 year old male with a history of metastatic bronchogenic carcinoma presented to the ED earlier today complaining of right sided chest pain. In the ED chest x-ray showed "increased right pleural effusion". He underwent thoracentesis in the ED which was complicated by a right pneumothorax. CT guided right-sided chest tube placement was performed by interventional radiology and patient is now admitted to the hospitalist service for further management. Currently patient reports feeling tired and does not wish to answer many questions or retell his medical history. He does answer my questions about review of systems and notes having chronic neck pain, right sided chest pain, some shortness of breath, occasionally feeling hot, and weight loss recently. Remainder of review of systems is otherwise negative. Allergies Coded Allergies: morphine (Verified Allergy, Unknown, INSOMNIA PER PATIENT, 02/25/17) PATIENT WAS GIVEN PO - STATES IT CAUSED INSOMNIA AND HE WAS UNABLE TO SLEEP, NO RASHES Home Medications Hydrocodone-Acetaminophen 5-325 mg 1-2 Tab PO Q6H Exam Vital Signs & I/O Vital Sign- Last 8 Hours Date Time Temp Pulse Resp B/P Pulse Ox O2 Delivery O2 Flow Rate FiO2 03/09/17 17:21 36.2 109 19 109/75 95 Room Air 03/09/17 17:19 107 03/09/17 17:01 106 18 128/80 90 Room Air 03/09/17 16:18 98 20 123/81 95 Room Air 03/09/17 15:48 104 20 119/81 94 03/09/17 15:16 94 16 123/89 95 Room Air 03/09/17 15:01 102 20 119/80 94 Room Air 03/09/17 12:30 92 18 109/79 94 Room Air Lab & Micro Results Laboratory Tests Test 03/09/17 10:13 03/09/17 12:55 White Blood Count 11.2th/mm3 (3.8-10.1) Red Blood Count 5.47mil/mm3 (4.40-5.80) Hemoglobin 15.4g/dL (13.8-17.2) Hematocrit 46.2% (41.0-50.0) Mean Corpuscular Volume 84.5fL (81-100) Mean Corpuscular Hemoglobin 28.2pg (27.0-35.0) Mean Corpuscular Hemoglobin Concent 33.3% (32.0-37.0) Red Cell Distribution Width 14.0% (12.3-15.4) Platelet Count 452bil/L (150-400) Neutrophils (%) (Auto) 78.0% (40-74) Lymphocytes (%) (Auto) 7.6% (14-46) Monocytes (%) (Auto) 9.2% (4-12) Eosinophils (%) (Auto) 4.5% (0-5) Basophils (%) (Auto) 0.3% (0-3) Prothrombin Time 10.4sec (8.1-12.5) Prothromb Time International Ratio 0.97ratio Sodium Level 129mEq/L (134-144) Potassium Level 4.8mEq/L (3.5-5.2) Chloride Level 90mEq/L (97-108) Carbon Dioxide Level 21mmol/L (18-29) Blood Urea Nitrogen 10mg/dL (6-24) Creatinine 0.66mg/dL (0.76-1.27) Estimat Glomerular Filtration Rate 131mL/min (>59) Glucose Level 99mg/dL (60-99) Calcium Level 10.2mg/dL (8.5-10.1) Total Bilirubin 0.4mg/dL (0.0-1.2) Aspartate Amino Transf (AST/SGOT) 18U/L (0-50) Alanine Aminotransferase (ALT/SGPT) 10U/L (0-44) Alkaline Phosphatase 96U/L (25-160) Troponin T < 0.010ug/L (0.0-0.011) Pro-B-Type Natriuretic Peptide 82.89pg/mL (0-210) Total Protein 8.2g/dL (6.4-8.4) Albumin 3.6g/dL (3.4-5.0) Hold Vicente Top Tube Received (Received) Urine Color Red (YELLOW) Urine Appearance Turbid (CLEAR,HAZY) Urine pH 7.5 (5.0-8.0) Urine Specific [place] 1.015 (1.003-1.035) Urine Protein 300mg/dL (NEG,TRACE) Urine Glucose (UA) 100mg/dL (NEGATIVE) Urine Ketones Negativemg/dL (NEGATIVE) Urine Occult Blood Large (NEGATIVE) Urine Nitrite Negative (NEGATIVE) Urine Bilirubin Negative (NEGATIVE) Urine Urobilinogen Normalmg/dL (NORMAL) Urine Leukocyte Esterase Trace (NEGATIVE) Urine RBC Packed/hpf (0-2) Urine WBC 11-50/hpf (0-5) Urine Epithelial Cells Occasional/hpf (NONE-MOD) Urine Crystals None seen (NONE SEEN) Urine Bacteria Few/hpf (NONE-FEW) Urine Hyaline Casts None/lpf (NONE) Urine Granular Casts None seen (NONE SEEN) Urine Waxy Casts None seen (NONE SEEN) Urine Red Blood Cell Casts None seen (NONE SEEN) Urine White Blood Cell Casts None seen (NONE SEEN) Urine Mucus None seen (None Seen) Urine Trichomonas None seen (NONE SEEN) Urine Yeast None (NONE SEEN) Urinalysis Comment None Urine Culture Reflexed Indicated Microbiology 03/09/17 Blood Culture, Received Pending 03/09/17 Urine Culture, Received Pending Result Diagram: 03/09/17 1013 03/09/17 1013 Review of Systems: Constitutional: Negative, except as otherwise mentioned in the history above. Ophthalmologic: Negative, except as otherwise mentioned in the history above. Cardiovascular: Negative, except as otherwise mentioned in the history above. Respiratory: Negative, except as otherwise mentioned in the history above. Gastrointestinal: Negative, except as otherwise mentioned in the history above. Genitourinary: Negative, except as otherwise mentioned in the history above. Musculoskeletal: Negative, except as otherwise mentioned in the history above. Neurological: Negative, except as otherwise mentioned in the history above. Psychiatric: Negative, except as otherwise mentioned in the history above. Hematologic/Lymphatic: Negative, except as otherwise mentioned in the history above. Allergic/Immunologic: Negative, except as otherwise mentioned in the history above. PMH 1. Metastatic bronchogenic carcinoma with near complete opacification of the right lung with malignant pleural effusion, stage IV, with evidence of distant metastases diagnosed in recent months and without any chemo or radiation treatment so far. 2. Disabled since 1979 for chronic back injury. Surgical History Appendectomy 2010 Family History He has three grown daughters who are well, and five grandchildren who are well. He has three older sisters who are well. His mother with complications of hypertension, possibly a stroke in her 30s when he was still 11 years old, and father with prostate cancer at 80. Social History Hx Alcohol Use: No Hx Substance Use: No Hx Tobacco Use: Yes Smoking Status: Current Every Day Smoker Living Arrangement: with Family Exam Vital Signs Vital Sign - Last Date Time Temp Pulse Resp B/P Pulse Ox O2 Delivery O2 Flow Rate FiO2 03/09/17 17:21 36.2 109 19 109/75 95 Room Air General: Alert, Oriented X3, Cooperative, No Acute Distress Head: Normal Eyes: PERRLA, EOMI, Scleral Anicteric Nose: Mucous Membr Moist/[place] Mouth: Mucous Membr Moist/[place] Neck: Supple Chest & Lungs: Clear to auscultation & percussion, Other (right chest tube in place) Cardiovascular: Regular Rate/Rhythm Pulses: NL carotid, radial, femoral, DP, PT Abdomen: Non-tender, Non-distended, Normoactive bowel tones, Soft Extremities: No cyanosis/clubbing/edma bilat Neurological: Grossly Neurologically Intact, Cranial Nerves 2-12 Intact, Normal Speech Additional Information: Psych: Seems somewhat angry and frustrated Lab and Diagnostics Result Diagram: 03/09/17 1013 03/09/17 1013 X-Rays, CTs and MRIs Date of Service: 03/09/17 0946 PROCEDURE: X-RAY CHEST, TWO VIEWS ([id number]) IMPRESSION: Increased right pleural effusion when compared with the prior study. Dictated by: Lyn Mckeon M.D. on 03/09/2017 at 10:32 Approved by: Lyn Mckeon M.D. on 03/09/2017 at 10:33 Date of Service: 03/09/17 1155 PROCEDURE: X-RAY CHEST ONE VIEW, PORTABLE ([id number]) IMPRESSION: Moderate right pneumothorax. The above findings were discussed with Dr. Marlon Garza on 03/09/17 at 12:03pm. Dictated by: Ofelia Barbosa M.D. on 03/09/2017 at 12:12 Approved by: Ofelia Barbosa M.D. on 03/09/2017 at 12:16 Date of Service: 03/09/17 1222 PROCEDURE: 1. CT guided right-sided chest tube placement. 2. Conscious sedation x20 minutes. IMPRESSION: 1. CT-guided right-sided chest tube placement for pneumothorax. 2. Extensive right lung opacity and overlying pleural caking, which may limit right lung expansion/pneumothorax evacuation. 3. Multiloculated right pleural effusion. Dictated by: Yasmany Becerra M.D. on 03/09/2017 at 14:56 Approved by: Yasmany Becerra M.D. on 03/09/2017 at 15:00 Date of Service: 03/09/17 1733 PROCEDURE: X-RAY CHEST ONE VIEW, PORTABLE ([id number]) IMPRESSION: Decreasing right pneumothorax. Dictated by: Yasmany Becerra M.D. on 03/09/2017 at 18:28 Approved by: Yasmany Becerra M.D. on 03/09/2017 at 18:28 Assessment & Plan 61 year old male with metastatic bronchogenic carcinoma post thoracentesis in the ED which was complicated by a right pneumothorax now post chest tube placement. # Acute right iatrogenic right pneumothorax after thoracentesis attempt in ED. - Post CT guided right-sided chest tube placement on 03/09/17 - Dr. Concepcion from general surgery consulted and her consult and assistance in managing the chest tube is greatly appreciated. 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 - Per earlier notes patient still undecided if he wants to pursue any further chemo or radiation therapy - Currently he does not wish to talk about his goals of care - Palliative care consult in am - Continue with supportive care # Acute hyponatremia. present on admission. 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 Discussed and verified with the patient.) Time spent 60 min Elijah Kilgore Mar 09, 2017 18:40
--- NOTE | 2017-03-09 19:04 | PCM.CONPHA ---
Subjective Date of Service: Mar 09, 2017 Requesting Provider: Elijah Kilgore right sided chest pain and shortness of breath Objective Vital Signs Date Time Temp Pulse Resp B/P Pulse Ox O2 Delivery O2 Flow Rate FiO2 03/09/17 17:21 36.2 109 19 109/75 95 Room Air 03/09/17 17:19 107 03/09/17 17:01 106 18 128/80 90 Room Air 03/09/17 16:18 98 20 123/81 95 Room Air 03/09/17 15:48 104 20 119/81 94 03/09/17 15:16 94 16 123/89 95 Room Air 03/09/17 15:01 102 20 119/80 94 Room Air 03/09/17 12:30 92 18 109/79 94 Room Air 03/09/17 09:31 36.0 100 18 140/90 96 Room Air Weight (Kilograms): 76.100 Height (Feet): 6 Height (Inches): 1.00 Test 03/09/17 10:13 03/09/17 12:55 White Blood Count 11.2th/mm3 (3.8-10.1) Red Blood Count 5.47mil/mm3 (4.40-5.80) Hemoglobin 15.4g/dL (13.8-17.2) Hematocrit 46.2% (41.0-50.0) Mean Corpuscular Volume 84.5fL (81-100) Mean Corpuscular Hemoglobin 28.2pg (27.0-35.0) Mean Corpuscular Hemoglobin Concent 33.3% (32.0-37.0) Red Cell Distribution Width 14.0% (12.3-15.4) Platelet Count 452bil/L (150-400) Neutrophils (%) (Auto) 78.0% (40-74) Lymphocytes (%) (Auto) 7.6% (14-46) Monocytes (%) (Auto) 9.2% (4-12) Eosinophils (%) (Auto) 4.5% (0-5) Basophils (%) (Auto) 0.3% (0-3) Prothrombin Time 10.4sec (8.1-12.5) Prothromb Time International Ratio 0.97ratio Sodium Level 129mEq/L (134-144) Potassium Level 4.8mEq/L (3.5-5.2) Chloride Level 90mEq/L (97-108) Carbon Dioxide Level 21mmol/L (18-29) Blood Urea Nitrogen 10mg/dL (6-24) Creatinine 0.66mg/dL (0.76-1.27) Estimat Glomerular Filtration Rate 131mL/min (>59) Glucose Level 99mg/dL (60-99) Calcium Level 10.2mg/dL (8.5-10.1) Total Bilirubin 0.4mg/dL (0.0-1.2) Aspartate Amino Transf (AST/SGOT) 18U/L (0-50) Alanine Aminotransferase (ALT/SGPT) 10U/L (0-44) Alkaline Phosphatase 96U/L (25-160) Troponin T < 0.010ug/L (0.0-0.011) Pro-B-Type Natriuretic Peptide 82.89pg/mL (0-210) Total Protein 8.2g/dL (6.4-8.4) Albumin 3.6g/dL (3.4-5.0) Hold Vicente Top Tube Received (Received) Urine Color Red (YELLOW) Urine Appearance Turbid (CLEAR,HAZY) Urine pH 7.5 (5.0-8.0) Urine Specific [place] 1.015 (1.003-1.035) Urine Protein 300mg/dL (NEG,TRACE) Urine Glucose (UA) 100mg/dL (NEGATIVE) Urine Ketones Negativemg/dL (NEGATIVE) Urine Occult Blood Large (NEGATIVE) Urine Nitrite Negative (NEGATIVE) Urine Bilirubin Negative (NEGATIVE) Urine Urobilinogen Normalmg/dL (NORMAL) Urine Leukocyte Esterase Trace (NEGATIVE) Urine RBC Packed/hpf (0-2) Urine WBC 11-50/hpf (0-5) Urine Epithelial Cells Occasional/hpf (NONE-MOD) Urine Crystals None seen (NONE SEEN) Urine Bacteria Few/hpf (NONE-FEW) Urine Hyaline Casts None/lpf (NONE) Urine Granular Casts None seen (NONE SEEN) Urine Waxy Casts None seen (NONE SEEN) Urine Red Blood Cell Casts None seen (NONE SEEN) Urine White Blood Cell Casts None seen (NONE SEEN) Urine Mucus None seen (None Seen) Urine Trichomonas None seen (NONE SEEN) Urine Yeast None (NONE SEEN) Urinalysis Comment None Urine Culture Reflexed Indicated Assessment/Plan Assessment/Plan ENOXAPARIN per Rx Indication: DVT prophylaxis SCR 0.66; Wt 76.1kg 40mg daily per protocol Jose L Gutierrez PharmD Mar 09, 2017 19:04 Jose L Gutierrez PharmD Mar 09, 2017 19:04
--- NOTE | 2017-03-09 20:26 | DRSVH ---
PROCEDURE: X-RAY CHEST ONE VIEW, PORTABLE ([id number]) INDICATIONS: interval pneumothorax, chest tube TECHNIQUE: One view of the chest was acquired. COMPARISON: [facility], CR, XR CHEST 1VW (PORTABLE), 03/09/2017, 17:48. FINDINGS: Surgical changes and devices: Right inferior chest tube. Lungs and pleura: No change in small right pleural effusion. Right pneumothorax has decreased in size , and is now small. Moderate multifocal patchy right lung opacity is present. Mediastinum: Mediastinal contours appear normal. Heart size is normal. Bones and chest wall: No suspicious bony lesions. Overlying soft tissues appear unremarkable. IMPRESSION: Resolving right pneumothorax. Dictated by: Yasmany Becerra M.D. on 03/09/2017 at 20:24 Approved by: Yasmany Becerra M.D. on 03/09/2017 at 20:25
--- NOTE | 2017-03-09 22:44 | NUR ---
Oxygen requirement Pt is 88% on Rm Air. His pain rating is a 3 to his right chest. Placed on 2L NC. Currently 95% on 2L Will cont to monitor
--- NOTE | 2017-03-09 23:28 | PCM.CONSUR ---
Subjective Date of Service: Mar 09, 2017 History of Present Illness CC Right sided chest pain. Consulting physician: Dr. Garza H&P: Mr. Wes Cross is a 61-year-old man metastatic bronchogenic carcinoma with mass in right upper lobe diagnosed 12/30/16 and has does not wish to receive medical oncology therapy with past medical history of chronic back pain and shoulder pain, and tobacco use disorder. Mr. Cross presents to the [facility] ER with significant right sided chest pain. CXR showed near complete right sided opacification. A Thoracentesis was performed with of 3L of fluid drained. Patient had significant pain during the procedure. Following the procedure, he subsequently developed a pneumothorax and had a pigtail chest tube placed. Past Medical History: 1. Metastatic bronchogenic carcinoma with near complete opacification of the right lung with malignant pleural effusion, stage IV, with evidence of distant metastases. Bone scan shows likely metastatic lesions in the right 4th, 5th and 6th ribs, left ischium and proximal femurs bilaterally 2. Disabled since 1979 for chronic back injury. 3. Other history appendectomy 2010, but he has not seen an MD on a regular basis for 20 years. He reports no other active diagnoses. Past Surgical History: Appendectomy 2011 Home Meds: hydrocodone/acetaminophen 5/325 q.6 h. 1-2 prn pain. Allergies: MORPHINE. Family history: N/A Social history: Significant tobacco use. ROS: Generally, he is suffering from some dyspnea but has marked improvement since the thoracentesis. He has had no recent febrile or other illnesses. He has had no further weight gain, weight loss or other constitutional symptoms and the remainder of the 14 system review is negative. PE General: No acute distress, well-developed, appropriately interactive. HEENT: Normocephalic, atraumatic. External ears without defect. Pupils equal, round, and reactive to light and accommodation. Anicteric sclerae, moist conjunctivae Neck: Supple with full range of motion. No JVD. No bruits. No lymphadenopathy or thyromegaly. Cardiovascular: Regular rate and rhythm with no murmurs, rubs, or gallops appreciated Pulmonary: Diminished air flow on the right side, with no crackles, wheezes, or rhonchi. Normal respiratory effort with no use of accessory muscles. Abdomen: Bowel tones present. Soft, nontender, nondistended. No hepatosplenomegaly or masses appreciated. : Superpubic catheter in place. Extremities: No clubbing, cyanosis, edema, or lymphadenopathy appreciated. Skin: Normal temperature, no subcutaneous nodules appreciated. Neurological: Cranial nerves grossly intact. Normal muscle strength, tone, Reflexes, coordination, and sensory function within normal limits. Psychiatric: Depressed mood and affect. Alert and oriented to person, place, and time. Vitals : Temp 36.2, HR 98, RR 18, BP 109/75, 95% RA Laboratories: WBC 11.2, Hgb 15.2, Hct 46.2, Plt 452, neuts 78, Sodium 129, potassium 4.8, chloride 90, C02 21, BUN 10, Crastinine 0.66, Glucose 99, calcium 10.2, tot ladi 0.4, AST/ALT 18/10, Alk phos 96, Urine Turbid, prot 300, glu 100, large occult blood, nitrite neg, leukocyte est trace, packed RBC, few bact, occasional epithelial Imaging: CXR 10:33 - Increased right pleural effusion when compared with the prior study. CXR 12:16 - Moderate right pneumothorax. Thoracentesis 15:00 - CT-guided right-sided chest tube placement for pneumothorax., Extensive right lung opacity and overlying pleural caking, which may limit right lung expansion/pneumothorax evacuation, Multiloculated right pleural effusion . Assessment: 61yom with R sided PTX after thoracentesis s/p pigtail drain placement with persistent but decreased pneumothorax. Recommendation: Repeat CXR at 8pm this evening and if stable or decreased, again tomorrow am. Chest tube to continuous suction in the interim. PleurX catheter placement by IR as outpatient. Allergy Allergies: Coded Allergies: morphine (Verified Allergy, Unknown, INSOMNIA PER PATIENT, 02/25/17) PATIENT WAS GIVEN PO - STATES IT CAUSED INSOMNIA AND HE WAS UNABLE TO SLEEP, NO RASHES Medications Hydrocodone-Acetaminophen 5-325 mg (Hydrocodone-Acetaminophen 5-325 mg) 1 Each Tablet 1-2 TAB PO Q6H (Reported) Last Taken: Unknown Dose on 03/09/17 Past Surgical History Surgeries: Yes (appy) Patient/Family Past Surgical: Positive for:: Accept Blood Products?, Denies:: Anesthesia Reactions, Blood Transfuse Reaction, Blood Transfusions Social History Hx Alcohol Use: No Hx Substance Use: No Hx Tobacco Use: Yes PMH HEENT History History of ENT Problems?: No Cardiovascular History History of Heart Problems?: No Cardiovascular History: Denies:: Congestive Heart Failure Hypertension Respiratory History of Respiratory Problem: Yes Respiratory History: Positive for:: Dyspnea Denies:: Asthma COPD Chest Surgery Emphysema Hemoptysis Pneumonia Tuberculosis Other Resp Pertinent History: Lung cancer this visit Neurological History Hx Neurologic Problems?: No Gastrointestinal History HX of GI Problems?: No Musculoskeletal History Hx Musculoskeletal Problems?: Yes Musculoskeletal History: Positive for:: Back Injury Denies:: Joint Replacement Musculoskeletal Trauma Psycho Social History Hx of Psycho/Social Problems?: Yes Psycho Social History: Positive for:: Anxiety Hx Depression Denies:: Bipolar Disorder Suicide Attempt Other History Hx Any Other Health Problems?: Yes Other History: Positive for:: Cancer (lung) Denies:: Hospitalization Thyroid Disease Diabetes: No Social History Hx Alcohol Use: NoHx Substance Use: NoHx Tobacco Use: Yes Smoking Status: Current Every Day Smoker Living Arrangement: with Family Objective Exam Vital Signs & I/O Vital Sign- Last 8 Hours Date Time Temp Pulse Resp B/P Pulse Ox O2 Delivery O2 Flow Rate FiO2 03/09/17 21:59 20 94 03/09/17 20:00 107 03/09/17 19:45 36.2 99 18 109/76 92 Room Air 03/09/17 19:43 20 95 03/09/17 17:21 36.2 109 19 109/75 95 Room Air 03/09/17 17:19 107 03/09/17 17:01 106 18 128/80 90 Room Air 03/09/17 16:18 98 20 123/81 95 Room Air 03/09/17 15:48 104 20 119/81 94 Lab & Micro Results Laboratory Tests Test 03/09/17 10:13 03/09/17 12:55 White Blood Count 11.2th/mm3 (3.8-10.1) Red Blood Count 5.47mil/mm3 (4.40-5.80) Hemoglobin 15.4g/dL (13.8-17.2) Hematocrit 46.2% (41.0-50.0) Mean Corpuscular Volume 84.5fL (81-100) Mean Corpuscular Hemoglobin 28.2pg (27.0-35.0) Mean Corpuscular Hemoglobin Concent 33.3% (32.0-37.0) Red Cell Distribution Width 14.0% (12.3-15.4) Platelet Count 452bil/L (150-400) Neutrophils (%) (Auto) 78.0% (40-74) Lymphocytes (%) (Auto) 7.6% (14-46) Monocytes (%) (Auto) 9.2% (4-12) Eosinophils (%) (Auto) 4.5% (0-5) Basophils (%) (Auto) 0.3% (0-3) Prothrombin Time 10.4sec (8.1-12.5) Prothromb Time International Ratio 0.97ratio Sodium Level 129mEq/L (134-144) Potassium Level 4.8mEq/L (3.5-5.2) Chloride Level 90mEq/L (97-108) Carbon Dioxide Level 21mmol/L (18-29) Blood Urea Nitrogen 10mg/dL (6-24) Creatinine 0.66mg/dL (0.76-1.27) Estimat Glomerular Filtration Rate 131mL/min (>59) Glucose Level 99mg/dL (60-99) Calcium Level 10.2mg/dL (8.5-10.1) Total Bilirubin 0.4mg/dL (0.0-1.2) Aspartate Amino Transf (AST/SGOT) 18U/L (0-50) Alanine Aminotransferase (ALT/SGPT) 10U/L (0-44) Alkaline Phosphatase 96U/L (25-160) Troponin T < 0.010ug/L (0.0-0.011) Pro-B-Type Natriuretic Peptide 82.89pg/mL (0-210) Total Protein 8.2g/dL (6.4-8.4) Albumin 3.6g/dL (3.4-5.0) Hold Vicente Top Tube Received (Received) Urine Color Red (YELLOW) Urine Appearance Turbid (CLEAR,HAZY) Urine pH 7.5 (5.0-8.0) Urine Specific [place] 1.015 (1.003-1.035) Urine Protein 300mg/dL (NEG,TRACE) Urine Glucose (UA) 100mg/dL (NEGATIVE) Urine Ketones Negativemg/dL (NEGATIVE) Urine Occult Blood Large (NEGATIVE) Urine Nitrite Negative (NEGATIVE) Urine Bilirubin Negative (NEGATIVE) Urine Urobilinogen Normalmg/dL (NORMAL) Urine Leukocyte Esterase Trace (NEGATIVE) Urine RBC Packed/hpf (0-2) Urine WBC 11-50/hpf (0-5) Urine Epithelial Cells Occasional/hpf (NONE-MOD) Urine Crystals None seen (NONE SEEN) Urine Bacteria Few/hpf (NONE-FEW) Urine Hyaline Casts None/lpf (NONE) Urine Granular Casts None seen (NONE SEEN) Urine Waxy Casts None seen (NONE SEEN) Urine Red Blood Cell Casts None seen (NONE SEEN) Urine White Blood Cell Casts None seen (NONE SEEN) Urine Mucus None seen (None Seen) Urine Trichomonas None seen (NONE SEEN) Urine Yeast None (NONE SEEN) Urinalysis Comment None Urine Culture Reflexed Indicated Microbiology 03/09/17 Blood Culture, Received Pending 03/09/17 Urine Culture, Received Pending Result Diagram: 03/09/17 1013 03/09/17 1013 Review of Systems: Constitutional: Negative, except as otherwise mentioned in the history above. Ophthalmologic: Negative, except as otherwise mentioned in the history above. Cardiovascular: Negative, except as otherwise mentioned in the history above. Respiratory: Negative, except as otherwise mentioned in the history above. Gastrointestinal: Negative, except as otherwise mentioned in the history above. Genitourinary: Negative, except as otherwise mentioned in the history above. Musculoskeletal: Negative, except as otherwise mentioned in the history above. Neurological: Negative, except as otherwise mentioned in the history above. Psychiatric: Negative, except as otherwise mentioned in the history above. Hematologic/Lymphatic: Negative, except as otherwise mentioned in the history above. Allergic/Immunologic: Negative, except as otherwise mentioned in the history above. H&P Surgical Exam Exam General: Alert, Oriented X3, Cooperative, No Acute Distress Assessment & Plan VTE Prophylaxis: Sub-Q Enoxaparin Resuscitation Status: Limited Interventions (DNI but OK to resuscitate. Discussed and verified with the patient.) Lou Concepcion MD Mar 09, 2017 23:28
[2017-03-10] VITALS (9 sets, daily range): BP systolic 111–128; BP diastolic 77–86; PULSE 84–94; RESP 14–20; O2SAT 92–95
[2017-03-10] MEDS: HYDROmorphone PCA 0.2 mg/mL 30 mL Inj IV PRN ×2 (06:07→16:01)
--- NOTE | 2017-03-10 08:36 | PCM.PNSURG ---
Subjective Visit Information: Reason for Visit Metastatic Lung Cell, Pneumothorax Surgery/Surgery Date Post-Op Day # Date of Admission: Mar 09, 2017 at 16:20 Hospital Day # Subjective: PTX still present this am. Stable overnight. No air leak in pigtail. Objective Vital Sign- Last 8 Hours Date Time Temp Pulse Resp B/P Pulse Ox O2 Delivery O2 Flow Rate FiO2 03/10/17 07:56 36.8 89 20 116/79 92 Nasal Cannula 3.00 03/10/17 06:08 20 94 03/10/17 04:02 20 94 03/10/17 04:02 36.7 88 20 114/80 Nasal Cannula 3.00 Intake and Output- Last 8 Hour 03/10/17 Cumulative From/Thru 07:00 03/09/17 09:31 - 03/10/17 05:21 Intake Total 200 ml 436 ml Output Total 550 ml 3600 ml Balance -350 ml -3164 ml Intake Oral 200 ml 436 ml Output Urine Total 400 ml 400 ml Chest Tube Drainage Total 150 ml 550 ml Other 2650 ml # Bowel Movements 0 0 General: Alert, Oriented X3, Cooperative, No Acute Distress Lungs: Other (breathing easily on NC. No air leak in chest pigtail drain.) Result Diagram: 03/09/17 1013 03/10/17 0643 Assessment & Plan Impression Persistent PTX. Problems: Plan Aspiration of air from PTX this am. Repeat CXR. VTE Prophylaxis: Sub-Q Enoxaparin Resuscitation Status: Limited Interventions (DNI but OK to resuscitate. Discussed and verified with the patient.) Lou Concepcion MD Mar 10, 2017 08:36
--- NOTE | 2017-03-10 10:35 | DRSVH ---
PROCEDURE: X-RAY CHEST ONE VIEW, PORTABLE ([id number]) INDICATIONS: PTX TECHNIQUE: Inspiration and expiration views of the chest acquired. COMPARISON: [facility], CT, CT ANGIO CHEST PE, 02/11/2017, 12:42. [facility] , CT, CT CHEST TUBE INSERTION, 03/09/2017, 13:37. [facility], CR, XR CHEST 1VW (PORTABLE) , 03/09/2017, 17:48. [facility], CR, XR CHEST 1VW (PORTABLE), 03/09/2017, 19:55. [facility], CR, XR CHEST 1VW (PORTABLE), 03/10/2017, 6:32. FINDINGS: Surgical changes and devices: A right pigtail pleural catheter is redemonstrated, similar in positio n. Lungs and pleura: There is a persistent small to moderate size right pneumothorax which appears sligh tly increased in size from the prior, measuring up to 4.5 cm at the apex compared to 3.6 cm previousl y. No new leftward shift of the mediastinum or diaphragmatic depression to suggest tension. There i s pleural thickening redemonstrated in the right hemithorax as was a persistent small right pleural e ffusion. Confluent opacities also demonstrated within the partially expanded right lung. Left lung appears clear. Mediastinum: Mediastinal contours appear unchanged. Heart size is normal. Bones and chest wall: No suspicious bony lesions. Overlying soft tissues appear unremarkable. IMPRESSION: 1. Slight increase in size of right pneumothorax with the right pleural catheter remaining in place at the right base. Findings suggest incomplete expansion of the right lung. 2. Persistent small right pleural effusion. 3. Right pleural thickening and confluent opacities in the right lung redemonstrated. Findings were discussed with Dr. Concepcion by Dr. Becerra shortly following the conclusion of the study on 03/10/17. Dictated by: Warren Palacio M.D. on 03/10/2017 at 10:23 Approved by: Warren Palacio M.D. on 03/10/2017 at 10:34
--- NOTE | 2017-03-10 10:36 | DRSVH ---
PROCEDURE: X-RAY CHEST ONE VIEW, PORTABLE ([id number]) INDICATIONS: interval pneumothorax, chest tube TECHNIQUE: One view of the chest was acquired. COMPARISON: [facility], CR, XR CHEST 1VW (PORTABLE), 03/09/2017, 19:55. FINDINGS: Surgical changes and devices: Right inferior chest tube. Lungs and pleura: No change to slight decrease in small right pleural effusion. Right pneumothorax belcher s decreased in size, and is now small. Moderate multifocal patchy right lung opacity is present. Mediastinum: Mediastinal contours appear normal. Heart size is normal. Bones and chest wall: No suspicious bony lesions. Overlying soft tissues appear unremarkable. IMPRESSION: Resolving right pneumothorax. Dictated by: Timothy Euceda RRA Interpreted: Wes Dang MD on 03/10/2017 at 10:35 Transcribed by: SOFIE on 03/10/2017 at 10:36 Approved by: Wes Dang M.D. on 03/10/2017 at 15:40
--- NOTE | 2017-03-10 10:44 | NUR ---
Social Work-initial assessment: Data:See initial assessment. Pt is a 61 y/o male who was admitted on 03/09/17 for metastatic lung cancer per H&P. Pt's insurance is [facility] and PCP is Kaur Becker MD. EMR Reviewed. Pt's readmission score is 3. SW met with pt and at bedside to discuss discharge planning, SW role explained. Pt is alert and oriented x3. Pt resides at home with his in [place] where he remains independent with ADls. Pt drives and does not use any DME. Pt has no HH or SNF history. Pt has no retirement care or VA benefits. Pt has no Supplemental insurance. SW provided them with [employer] application. Pt currently has chest tube in place. SW discussed DPOA/ advanced directive, pt confirms this has been completed. Pt and have questions about Hospice,etc. SW discussed in morning rounds and MD states that he would like Palliative care to see pt to discuss goals of care. SW updated pt and at bedside. SW provided phone number and plan on white board in room. SW will continue to follow. Assessment:pt who is independent at baseline. Plan:Pt to discharge home when medically stable. Palliative care to meet with pt and to discuss goals of care. SW will continue to follow. HAZEL Eid Addendum: 03/10/17 at 1050 by DOUGLAS CANALES SS Amended: Links added.
--- NOTE | 2017-03-10 11:42 | PCM.CONPAL ---
Date of Service Mar 10, 2017 Date of Hospital Admission: Mar 09, 2017 at 16:20 Date of Palliative Consult: Mar 10, 2017 Requesting Provider: Elijah Kilgore Comment: PCP is Dr. Kaur Becker at [facility] clinic Reason Palliative Care Consult: Pain, Goals of Care Discussion Hospital Unit @time of consult: Orthopedic/Surgical Care (room 1012) Palliative Care Recommendation Summary of palliative recommendations: -Symptom management: 1. Pain: a. Continue HM DISTRICT EXTENSION SERVICE AGENT with 0.4mg q 10minutes for break-through pain b. Add to DISTRICT EXTENSION SERVICE AGENT a continuous rate of 0.2mg/hour to be used overnight until fentanyl patch has time to be activated. Likely we will stop the continuous rate tomorrow morning. c. Start fentanyl patch 25mcg/hr now. d. Start dexamethasone 4mg po q AM daily for bone pain and for appetite stimulation. 2. Constipation due to opiates. Last BM 2 days ago. Goal: daily BM as long as on daily opiate medications. a. Start Senna-S 1 po BID scheduled daily. Preferred in hospital and ordered today. b. OK to use miralax or PEG at home (instead of Senna-S), but Dr. Hernandez counseled family today that these products require a lot more ingestion of water to be effective. -DPOA/Advanced Directives/POLST: 1. Code status: Limited interventions. Not discussed with pt/family today. We will try to address pain relief first and return for more discussions tomorrow. -Family/emotional support: excellent support from [place] and 3 daughters. -Spiritual support-not addressed today. Problems: Disposition Pt has no termite helper care or VA benefits. Pt has no Supplemental insurance. SW provided them with [employer] application. Pt currently has chest tube in place. SW discussed DPOA/ advanced directive, pt confirms this has been completed. Pt and have questions about Hospice,etc. SW discussed in morning rounds and MD states that he would like Palliative care to see pt to discuss goals of care. Resuscitation Status Resuscitation Status: Limited Interventions (DNI but OK to resuscitate. Discussed and verified with the patient.) Pt History History of Present Illness 61 year old male with a history of metastatic bronchogenic carcinoma presented to the ED on 03/09, complaining of right sided chest pain. His chest x-ray showed "increased right pleural effusion". He underwent thoracentesis in the ED which was complicated by a right pneumothorax. CT guided right-sided chest tube placement was performed by interventional radiology and patient was admitted 03/09 to the hospitalist service for further management. Hospital Course: Today is Hospital Day 2 and Palliative Care was asked to address pain, constipation and goals of care. Subjective: Pt reports that his pain is in chest wall, around area of chest tube , but it was present, long-standing before the CT placement yesterday. He says at worse it is 10/10, sharp and sudden onset and at best it is "bearable" at 3-4 /10 and duller. It is present at rest and aggravated by moving about in bed or changing position from bed to sit at side of bed to stand. He can move around but has to pace himself and stop and start to wait for pain to subside. The button (DISTRICT EXTENSION SERVICE AGENT with Hydromorphone 0.4mg q 10min) helps, but he needs to use it a lot to get relief. Past Medical History Significant PMH Noted: 1. Metastatic bronchogenic carcinoma with near complete opacification of the right lung with malignant pleural effusion, stage IV, with evidence of distant metastases diagnosed in recent months and without any chemo or radiation treatment so far. 2. Disabled since 1979 for chronic back injury. Surgical History Appendectomy 2010 Family History He has three grown daughters who are well, and five grandchildren who are well. He has three older sisters who are well. His mother with complications of hypertension, possibly a stroke in her 30s when he was still 11 years old, and father with prostate cancer at 80. Social History Pt resides at home with his in [place] where he remains independent with ADls. Pt drives and does not use any DME. Pt has no HH or SNF history. 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 Allergy Allergies Reviewed: Yes Medications Current Medications: Current Medications Al Hydrox/Mg Hydrox/Simethicone 30 ml Q6 PRN PO; Start 03/09/17 at 16:30; Stop 03/09/17 at 18:35; Status DC Ondansetron HCl Dose range: 4 mg to 8 mg Q4H PRN IVPUSH; Start 03/09/17 at 16: 30; Stop 03/09/17 at 18:35; Status DC Acetaminophen 975 mg Q6H PRN PO; Start 03/09/17 at 16:30; Stop 03/09/17 at 18: 35; Status DC Nicotine 1 patch DAILY TOPICAL; Start 03/09/17 at 16:30; Stop 03/09/17 at 18:35 ; Status DC Naloxone HCl 0.04 mg Q1MIN PRN IVPUSH; Start 03/09/17 at 16:30 Diphenhydramine HCl Dose Range: 12.5 mg... Q4H PRN IVPUSH; Start 03/09/17 at 16 :30 Al Hydrox/Mg Hydrox/Simethicone 30 ml Q6H PRN PO; Start 03/09/17 at 18:35 Ondansetron HCl 4 to 8 mg Q4H PRN IVPUSH; Start 03/09/17 at 18:35 Senna 17.2 mg BID PRN PO; Start 03/09/17 at 18:35 Polyethylene Glycol 17 gm DAILY PRN PO; Start 03/09/17 at 18:35 Acetaminophen 650 mg Q4H PRN PO; Start 03/09/17 at 18:35 Nicotine 1 patch DAILY TOPICAL; Start 03/10/17 at 08:30 Enoxaparin Sodium 40 mg 2030 SUBQ Last administered on 03/09/17t 22:18; Admin Dose 40 MG; Start 03/09/17 at 20:30 Scheduled Hydrocodone-Acetaminophen 5-325 mg (Hydrocodone-Acetaminophen 5-325 mg) 1 Each Tablet 1-2 TAB PO Q6H Objective Findings Exam Vital Sign - Last Date Time Temp Pulse Resp B/P Pulse Ox O2 Delivery O2 Flow Rate FiO2 03/10/17 10:53 87 03/10/17 07:56 36.8 20 116/79 92 Nasal Cannula 3.00 Intake and Output 03/09/17 03/09/17 03/10/17 Cumulative From/Thru 15:00 23:00 07:00 03/09/17 09:31 - 03/10/17 05:21 Intake Total 236 ml 200 ml 436 ml Output Total 2650 ml 400 ml 550 ml 3600 ml Balance -2650 ml -164 ml -350 ml -3164 ml Intake Oral 236 ml 200 ml 436 ml Output Urine Total 0 ml 400 ml 400 ml Chest Tube Drainage Total 400 ml 150 ml 550 ml Other 2650 ml 2650 ml # Bowel Movements 0 0 Objective General: Tall, thin man Neuro: nonfocal, Alert, Oriented X3, Cooperative, No Acute Distress Lungs: breathing well on NC oxygen. No air leak in chest pigtail drain per surgery. Both upper gordon sound clear on auscultation Heart: S1,S2, rrr, no murmur Abdomen: soft, nontender, +BS Extr: no edema, full range of motion Skin: no rashes, purpura, petechiae. Dry, warm. Lab/Diagnostics Lab and Diagnostics Result Diagram: 03/09/17 1013 03/10/17 0643 X-Rays, CTs and MRIs Date of Service: 03/09/17 0946 PROCEDURE: X-RAY CHEST, TWO VIEWS ([id number]) IMPRESSION: Increased right pleural effusion when compared with the prior study. Dictated by: Lyn Mckeon M.D. on 03/09/2017 at 10:32 Approved by: Lyn Mckeon M.D. on 03/09/2017 at 10:33 Date of Service: 03/09/17 1155 PROCEDURE: X-RAY CHEST ONE VIEW, PORTABLE ([id number]) IMPRESSION: Moderate right pneumothorax. The above findings were discussed with Dr. Marlon Garza on 03/09/17 at 12:03pm. Dictated by: Ofelia Barbosa M.D. on 03/09/2017 at 12:12 Approved by: Ofelia Barbosa M.D. on 03/09/2017 at 12:16 Date of Service: 03/09/17 1222 PROCEDURE: 1. CT guided right-sided chest tube placement. 2. Conscious sedation x20 minutes. IMPRESSION: 1. CT-guided right-sided chest tube placement for pneumothorax. 2. Extensive right lung opacity and overlying pleural caking, which may limit right lung expansion/pneumothorax evacuation. 3. Multiloculated right pleural effusion. Dictated by: Yasmany Becerra M.D. on 03/09/2017 at 14:56 Approved by: Yasmany Becerra M.D. on 03/09/2017 at 15:00 Date of Service: 03/09/17 1733 PROCEDURE: X-RAY CHEST ONE VIEW, PORTABLE ([id number]) IMPRESSION: Decreasing right pneumothorax. Dictated by: Yasmany Becerra M.D. on 03/09/2017 at 18:28 Approved by: Yasmany Becerra M.D. on 03/09/2017 at 18:28 Time spent Total time 100 minutes; >50% face to face with patient and/or family, providing counselling regarding plans and recommendations, and in care coordination with his/her medical teams. Lindsey Hernandez MD Mar 10, 2017 11:42
--- NOTE | 2017-03-10 12:37 | PCM.PNSURG ---
Subjective Visit Information: Reason for Visit Metastatic Lung Cell, Pneumothorax Surgery/Surgery Date Post-Op Day # Date of Admission: Mar 09, 2017 at 16:20 Hospital Day # Subjective: Pigtail catheter placed. Repeat chest x-ray this morning shows persistent pneumothorax. I therefore attempted apical thoracentesis. Postprocedure chest x-ray at 8:30 this morning shows persistent pneumothorax. I then reviewed this in detail with Yasmany Becerra of IR. His impression was that because he has some much metastatic cancer on the surface of his lung, but it may be somewhat trapped, and he would not expect rapid expansion of it. The patient is otherwise stable. Objective Vital Sign- Last 8 Hours Date Time Temp Pulse Resp B/P Pulse Ox O2 Delivery O2 Flow Rate FiO2 03/10/17 12:26 36.7 91 18 128/86 93 Nasal Cannula 3.00 03/10/17 10:53 87 03/10/17 07:56 36.8 89 20 116/79 92 Nasal Cannula 3.00 03/10/17 06:08 20 94 Intake and Output- Last 8 Hour 03/10/17 Cumulative From/Thru 07:00 03/09/17 09:31 - 03/10/17 05:21 Intake Total 200 ml 436 ml Output Total 550 ml 3600 ml Balance -350 ml -3164 ml Intake Oral 200 ml 436 ml Output Urine Total 400 ml 400 ml Chest Tube Drainage Total 150 ml 550 ml Other 2650 ml # Bowel Movements 0 0 General: Alert, Oriented X3, Cooperative, No Acute Distress Chest: Breathing easily on nasal cannula. Right chest tube with serosanguineous output. No airleak. No kinking. 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 Attempted thoracentesis of the apical pneumothorax this morning failed. Problems: Plan After careful discussion of this patient's prognosis and options with Dr. Becerra of radiology, we have developed the following plan: 1. Repeat chest x-ray this afternoon and tomorrow morning. 2. If no increase in pneumothorax, discontinue pigtail drain. 3. Goal is for Pleurx catheter placement. In order for this to occur, he needs to redevelop his pleural effusion, according to Dr. Becerra. Additionally, the pigtail drain needs to be out and no additional drains in the chest in order for the Pleurx to be placed into a non-contaminated cavity. Therefore, after several days or a week from pigtail catheter removal, chest x-ray should be repeated, and is pleural effusion has collected again, the Pleurx catheter may be placed by interventional radiology at that time. 4. Due to all of the above, no chest tube will be placed today, because this would drain the effusion that he needs in order to have his Pleurx catheter placed, and it also present a potential infectious source which would make Pleurx catheter placement less safe. Additionally, it would result in more pain for this patient who is very frustrated with all of the procedures she has needed so far on this hospitalization, and who has a poor prognosis. VTE Prophylaxis: Sub-Q Enoxaparin Resuscitation Status: Limited Interventions (DNI but OK to resuscitate. Discussed and verified with the patient.) Lou Concepcion MD Mar 10, 2017 12:37
--- NOTE | 2017-03-10 12:50 | NUR ---
Palliative Care Palliative Care received verbal order from Dr Kilgore 03/10/17 to assist with goals of care. Patient is a 61 year old man with metastatic bronchogenic carcinoma. He was admitted 03/09/17. Lv is his oncologist. Patient lives at home with his . [facility] () [phone] Palliative Care to follow. Sheba Eisenberg
[2017-03-10] MEDS ORDERED: Sodium Biphos-Phos 133 mL Enema RECTAL PRN (12:55)
--- NOTE | 2017-03-10 14:26 | PCM.PNMED ---
Subjective Date of Service Mar 10, 2017 Subjective Reports adequate pain control for now. Denies any other new issues/complaints at this time Exam Vital Signs Vital Sign - Last Date Time Temp Pulse Resp B/P Pulse Ox O2 Delivery O2 Flow Rate FiO2 03/10/17 12:26 36.7 91 18 128/86 93 Nasal Cannula 3.00 Intake and Output 03/09/17 03/09/17 03/10/17 Cumulative From/Thru 15:00 23:00 07:00 03/09/17 09:31 - 03/10/17 05:21 Intake Total 236 ml 200 ml 436 ml Output Total 2650 ml 400 ml 550 ml 3600 ml Balance -2650 ml -164 ml -350 ml -3164 ml Intake Oral 236 ml 200 ml 436 ml Output Urine Total 0 ml 400 ml 400 ml Chest Tube Drainage Total 400 ml 150 ml 550 ml Other 2650 ml 2650 ml # Bowel Movements 0 0 Exam General: Alert, Cooperative, No Acute Distress Head: Normal Eyes: PERRLA, EOMI, Scleral Anicteric Nose: Mucous Membr Moist/[place] Mouth: Mucous Membr Moist/[place] Neck: Supple Chest & Lungs: Clear to auscultation bilat, Other (right chest tube in place) Cardiovascular: Regular Rate/Rhythm Abdomen: Non-tender, Non-distended, Normoactive bowel tones, Soft Extremities: No cyanosis/clubbing/edema bilat Neurological: Grossly Neurologically Intact, Cranial Nerves 2-12 Intact, Normal Speech Psych: Seems somewhat angry and frustrated IVs and Medications Medications Reviewed: Medications were reviewed in detail Lab and Diagnostics Result Diagram: 03/09/17 1013 03/10/17 0643 X-Rays, CTs and MRIs Date of Service: 03/09/17 0946 PROCEDURE: X-RAY CHEST, TWO VIEWS ([id number]) IMPRESSION: Increased right pleural effusion when compared with the prior study. Dictated by: Lyn Mckeon M.D. on 03/09/2017 at 10:32 Approved by: Lyn Mckeon M.D. on 03/09/2017 at 10:33 Date of Service: 03/09/17 1155 PROCEDURE: X-RAY CHEST ONE VIEW, PORTABLE ([id number]) IMPRESSION: Moderate right pneumothorax. The above findings were discussed with Dr. Marlon Garza on 03/09/17 at 12:03pm. Dictated by: Ofelia Barbosa M.D. on 03/09/2017 at 12:12 Approved by: Ofelia Barbosa M.D. on 03/09/2017 at 12:16 Date of Service: 03/09/17 1222 PROCEDURE: 1. CT guided right-sided chest tube placement. 2. Conscious sedation x20 minutes. IMPRESSION: 1. CT-guided right-sided chest tube placement for pneumothorax. 2. Extensive right lung opacity and overlying pleural caking, which may limit right lung expansion/pneumothorax evacuation. 3. Multiloculated right pleural effusion. Dictated by: Yasmany Becerra M.D. on 03/09/2017 at 14:56 Approved by: Yasmany Becerra M.D. on 03/09/2017 at 15:00 Date of Service: 03/09/17 1733 PROCEDURE: X-RAY CHEST ONE VIEW, PORTABLE ([id number]) IMPRESSION: Decreasing right pneumothorax. Dictated by: Yasmany Becerra M.D. on 03/09/2017 at 18:28 Approved by: Yasmany Becerra M.D. on 03/09/2017 at 18:28 Assessment & Plan 61 year old male with metastatic bronchogenic carcinoma post thoracentesis in the ED which was complicated by a right pneumothorax now post chest tube placement. # Acute right iatrogenic right pneumothorax after thoracentesis attempt in ED. Persisting - Post CT guided right-sided chest tube placement on 03/09/17 - Repeat chest x-ray this am shows persistent pneumothorax. - Apical thoracentesis attempted by surgery on 03/10. - Appreciate surgery consult. Will followup with recommendations - Continue with supportive care including supplemental O2 - Followup repeat CXR # Metastatic bronchogenic carcinoma, present on admission. - Still undecided if he wants to pursue any further chemo or radiation therapy - Palliative care consulted today. Will followup with recommendations - Continue with supportive care # Acute hyponatremia. present on admission. 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 Ongoing - Continue with current IV Dilaudid TRANSPORTATION AID - Will followup with palliative care for further adjustment of pain meds Dispo: 2-3 days GI Prophylaxis: Not indicated VTE Prophylaxis: Sub-Q Enoxaparin Resuscitation Status: Limited Interventions (DNI but OK to resuscitate. Discussed and verified with the patient.) Elijah Kilgore Mar 10, 2017 14:26
--- NOTE | 2017-03-10 15:37 | DRSVH ---
PROCEDURE: X-RAY CHEST ONE VIEW, PORTABLE ([id number]) INDICATIONS: ptx TECHNIQUE: One view of the chest was acquired. COMPARISON: [facility], CR, XR CHEST 1VW (PORTABLE), 03/10/2017, 8:33. FINDINGS: Surgical changes and devices: A right pigtail pleural catheter is redemonstrated, similar in positio n. Lungs and pleura: There is a persistent small to moderate size right pneumothorax which appears uncha nged in size from the prior, measuring up to 4.5 cm at the apex. No new leftward shift of the medias tinum or diaphragmatic depression to suggest tension. There is pleural thickening redemonstrated in the right hemithorax as was a persistent small right pleural effusion. Confluent opacities also demo nstrated within the partially expanded right lung. Left lung appears clear. Mediastinum: Mediastinal contours appear unchanged. Heart size is normal. Bones and chest wall: No suspicious bony lesions. Overlying soft tissues appear unremarkable. IMPRESSION: 1. Right pleural drain in position and no significant change in right pneumothorax. 2. Small right pleural effusion redemonstrated and confluent opacities throughout the right lung rede monstrated. Dictated by: Timothy PIMENTEL Interpreted: Wes Dang MD on 03/10/2017 at 15:35 Transcribed by: SOFIE on 03/10/2017 at 15:37 Approved by: Wes Dang M.D. on 03/10/2017 at 15:43
[2017-03-10] MEDS: Polyethylene Glycol (PEG) 17 Gm Powder PO PRN (18:08)
--- NOTE | 2017-03-10 18:35 | NUR ---
Mobility Pt. wanted to go for a walk this afternoon. Pt. completed one full lap around the [place]. Pt. experienced some dyspnea and took breaks. No c/o of pain.
[2017-03-10] MEDS ORDERED: 0.9% Sodium Chloride 250 ML ONE (19:10)
[2017-03-10] MEDS: Senna-Docusate 8.6-50 mg Tablet PO SCH (21:27)
[2017-03-11] VITALS (12 sets, daily range): BP systolic 107–123; BP diastolic 73–81; PULSE 80–103; RESP 16–18; O2SAT 93–97
[2017-03-11] MEDS: HYDROmorphone PCA 0.2 mg/mL 30 mL Inj IV PRN ×2 (02:14→12:52)
--- NOTE | 2017-03-11 02:50 | NUR ---
Respiratory/Pain Patient remains on 2L NC, CPOx- high 90's. Mild complaints of SOB with activity. No c/o breakthrough pain/discomfort. States Dilaudid MANAGER INVENTORY CONTROL is working well for pain management.
[2017-03-11] MEDS: Senna-Docusate 8.6-50 mg Tablet PO SCH ×2 (07:43→20:33)
--- NOTE | 2017-03-11 07:51 | PCM.PALLBR ---
Palliative Care Recommendation Summary of palliative recommendations: Discussed case with Dr. Concepcion who thinks his lung is trapped by metastases and he will need a PleurX catheter placed by IR as an outpatient in near future. -Symptom management: 1. Pain: a. Continue HM TELEGRAPH PRINTER MECHANIC with 0.4mg q 10minutes for break-through pain until 1800H today, then decrease to 0.2mg q 10 minutes. b. Continue the continuous rate of 0.2mg/hour Hydromorphone until 1800H today and then stop it. c. Increase fentanyl patch to 50mcg/hr this morning (because he used 15mg hydromorphone IV in last 24 hours, which is equivalent to about 125mcg/hr patch) . d. Continue dexamethasone 4mg po q AM daily for bone pain and for appetite stimulation. 2. Constipation due to opiates. Last BM 3 days ago. Goal: daily BM as long as on daily opiate medications. a. Continue Senna-S 1 po BID scheduled daily. b. OK to use miralax or PEG at home (instead of Senna-S), but Dr. Hernandez counseled pt again today that these products require a lot more ingestion of water to be effective. So if he can't drink sufficient water, then he should be using Senna-S instead. Above pain medicine changes were discussed with Pharmacist who put the orders into [employer], and his floor RN to clarify my orders. Pain plan for tomorrow: reassess pain, hopefully can stop the TELEGRAPH PRINTER MECHANIC dilaudid on Wednesday and start oral dilaudid 4-8 mg q 4 hours prn break-through pain. -DPOA/Advanced Directives/POLST: 1. Code status: Limited interventions. Pt confirms that he doesn't want intubation and ventilation if he is dying of his cancer. He still would want CPR /defibrillation to be tried. -Family/emotional support: excellent support from America and 3 daughters. America will not be visiting until after 6pm today (as she is working). -Spiritual support-not addressed today. 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 Pt has no Supplemental insurance. SW provided them with [employer] application. Pt currently has chest tube in place. SW discussed DPOA/ advanced directive, pt confirms this has been completed. Pt and have questions about Hospice,etc. SW discussed in morning rounds and MD states that he would like Palliative care to see pt to discuss goals of care. Resuscitation Status Resuscitation Status: Limited Interventions (DNI but OK to resuscitate. Discussed and verified with the patient.) . Pain: Moderate Symptom management: Constipation Total time 65 minutes; >50% face to face with patient and/or family, providing counselling regarding plans and recommendations, and in care coordination with his/her medical teams. Palliative Brief Note Date of Service Mar 11, 2017 . Patient Identification: 61 year old WMM with a history of newly diagnosed metastatic bronchogenic carcinoma presented to the ED on 03/09, complaining of right sided chest pain. His chest x-ray showed "increased right pleural effusion ". He underwent thoracentesis in the ED which was complicated by a right pneumothorax. CT guided right-sided chest tube placement was performed by interventional radiology and patient was admitted 03/09 to the hospitalist service for further management. Hospital Course: Today is Hospital Day 3 and Palliative Care was asked to address pain, constipation and goals of care. Subjective: Pt says pain in chest wall, around area of chest tube, has improved. He still needed to push the TELEGRAPH PRINTER MECHANIC a few times overnight (waking up to do this). He says at worse it is 5-6/10, sharp and sudden onset and at best it is 2-3/10. It is present at rest and aggravated by moving about in bed or changing position from bed to sit at side of bed to stand, but he is now able to do more of this movements and endure the pain. Dr. Hernandez counsels that she will calculate how much IV dilaudid he needed in last 24 hours and increase the dose of his fentanyl patch as part of the process of transitions from the TELEGRAPH PRINTER MECHANIC dilaudid to the fentanyl patch. She again counsels him about needing a long acting pain medicine (the fentanyl patch), and a break through short acting medicine (likely this will be dilaudid pills) and a daily laxative to prevent constipation on opiates. He is beginning to understand the plan after asking a few questions. Past Medical/Surgical History 1. Metastatic bronchogenic carcinoma with near complete opacification of the right lung with malignant pleural effusion, stage IV, with evidence of distant metastases diagnosed in recent months and without any chemo or radiation treatment so far. 2. Disabled since 1979 for chronic back injury. 3. Appendectomy 2010 Family History He has three grown daughters who are well, and five grandchildren who are well. He has three older sisters who are well. His mother with complications of hypertension, possibly a stroke in her 30s when he was still 11 years old, and father with prostate cancer at 80. Social History Pt resides at home with his in [place] where he remains independent with ADls. Pt drives and does not use any DME. Pt has no HH or SNF history. 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 Exam: General: Tall, thin man, sitting in bed cross-legged with HOB up at almost 90 degrees. Neuro: nonfocal, Alert, Oriented X3, Cooperative, No Acute Distress Lungs: breathing well on NC oxygen. No air leak in chest pigtail drain per surgery. Both upper gordon sound clear on auscultation Heart: S1,S2, rrr, no murmur Abdomen: soft, nontender, +BS Extr: no edema, full range of motion Skin: no rashes, purpura, petechiae. Dry, warm. Lindsey Hernandez MD Mar 11, 2017 07:51
--- NOTE | 2017-03-11 09:17 | DRSVH ---
PROCEDURE: X-RAY CHEST ONE VIEW, PORTABLE ([id number]) INDICATIONS: ptx TECHNIQUE: One view of the chest was acquired. COMPARISON: [facility], CR, XR CHEST 1VW (PORTABLE), 03/10/2017, 8:33. [facility], CR, XR CHEST 1VW (PORTABLE), 03/10/2017, 6:32. [facility], CR, XR CHEST 1VW (OLGA BLE), 03/09/2017, 19:55. [facility], CR, XR CHEST 1VW (PORTABLE), 03/09/2017, 17:48. [facility], CR, XR CHEST 1VW (PORTABLE), 03/10/2017, 14:33. FINDINGS: Surgical changes and devices: A right pigtail pleural catheter is redemonstrated, similar in positio n. Lungs and pleura: There is a persistent small to moderate size right pneumothorax which appears uncha nged in size from the prior, measuring up to 4.5 cm at the apex. No new leftward shift of the medias tinum or diaphragmatic depression to suggest tension. There is pleural thickening redemonstrated in the right hemithorax as was a persistent small right pleural effusion. Confluent opacities also demo nstrated within the partially expanded right lung. Left lung appears clear. Mediastinum: Mediastinal contours appear unchanged. Heart size is normal. Bones and chest wall: No suspicious bony lesions. Overlying soft tissues appear unremarkable. IMPRESSION: 1. Right pleural drain remains in unchanged position and there's been no significant change in right pneumothorax without tension. 2. Small right pleural effusion redemonstrated and confluent opacities throughout the right lung not significantly changed. Dictated by: Timothy PIMENTEL Interpreted: Ofelia Barbosa MD on 03/11/2017 at 9:15 Transcribed by: REBEKAH on 03/11/2017 at 9:16 Approved by: Ofelia Barbosa M.D. on 03/13/2017 at 9:27
--- NOTE | 2017-03-11 11:38 | PCM.PNSURG ---
Subjective Visit Information: Reason for Visit Metastatic Lung Cell, Pneumothorax Surgery/Surgery Date Post-Op Day # Date of Admission: Mar 09, 2017 at 16:20 Hospital Day # Subjective: Stable overnight. CXR shows no significant change. Sats normal and stable. No air leak. Minimal serous drainage (150mL reported). Objective Vital Sign- Last 8 Hours Date Time Temp Pulse Resp B/P Pulse Ox O2 Delivery O2 Flow Rate FiO2 03/11/17 11:17 Supplement Oxygen 03/11/17 08:00 84 03/11/17 07:51 Supplement Oxygen 03/11/17 07:45 36.6 90 18 107/73 93 Nasal Cannula 2.00 03/11/17 06:15 36.2 94 18 120/80 94 Nasal Cannula 3.00 03/11/17 06:01 16 94 Intake and Output- Last 8 Hour 03/11/17 Cumulative From/Thru 07:00 03/09/17 09:31 - 03/11/17 06:38 Intake Total 633 ml 2029 ml Output Total 780 ml 4830 ml Balance -147 ml -2801 ml Intake Oral 520 ml 1676 ml IV Total 113 ml 353 ml Output Urine Total 680 ml 1530 ml Chest Tube Drainage Total 550 ml Drainage Total 100 ml 100 ml Other 2650 ml # Bowel Movements 0 General: Alert, Oriented X3, Cooperative, No Acute Distress Chest: Breathing easily on NC. IR placed Chest tube not kinked. Result Diagram: 03/09/17 1013 03/10/17 0643 Assessment & Plan Impression 61yom with trapped lung in setting of metastatic lung cancer, who will need PleurX catheter drainage. Problems: Plan Remove pigtail drain today with follow up CXR in afternoon. I will arrange for this. OK to discharge if stable and oxygenation is satisfactory from perspective of primary team. I recommend arranging for outpatient PleurX catheter placement in the IR department for sometime next week prior to discharging this patient. VTE Prophylaxis: Sub-Q Enoxaparin Resuscitation Status: Limited Interventions (DNI but OK to resuscitate. Discussed and verified with the patient.) Lou Concepcion MD Mar 11, 2017 11:38
[2017-03-11] MEDS: Polyethylene Glycol (PEG) 17 Gm Powder PO PRN (12:20)
--- NOTE | 2017-03-11 12:58 | PCM.PROC ---
Procedure Note Date of Service: Mar 11, 2017 Pre Procedure Diagnosis: Persistent pneumothorax s/p thoracentesis Post Procedure Diagnosis: Same Procedure: Removal of pigtail drain Provider and Arbitrator: Jonh Hines PA-C Indication for Procedure: persistent pnemothorax Findings: None Procedural Analgesia: None Procedure Details: Patient sitting upright for comfort. Pigtail drain cut to allow pigtail shape to lessen for ease of removal. Pigtail drain removed at end of deep inspiration. Dressing immediately applied to cover using gauze and silk tape. Patient tolerated procedure well. Specimen: None Post Procedure Plan: repeat chest x ray portable in 3 hours at ~1545 today. Bryon Hines PA-C Mar 11, 2017 12:58
--- NOTE | 2017-03-11 13:00 | NUR ---
RESPIRATORY Pigtail d/cd by surgical PA. Tip of the catheter is intact. Patient denies SOB. Continues to be on O2 at 2 LPM via NC. PO2 in the mid 90's. CXR to be done at 1545. PA-Jonh will evaluate results.
--- NOTE | 2017-03-11 15:07 | PCM.PNMED ---
Subjective Date of Service Mar 11, 2017 Subjective Reports adequate pain control for now. Denies any other new issues/complaints at this time Exam Vital Signs Vital Sign - Last Date Time Temp Pulse Resp B/P Pulse Ox O2 Delivery O2 Flow Rate FiO2 03/11/17 13:57 36.7 91 18 115/75 93 Nasal Cannula 2.00 Intake and Output 03/10/17 03/10/17 03/11/17 Cumulative From/Thru 15:00 23:00 07:00 03/09/17 09:31 - 03/11/17 06:38 Intake Total 960 ml 633 ml 2029 ml Output Total 450 ml 780 ml 4830 ml Balance 510 ml -147 ml -2801 ml Intake Oral 720 ml 520 ml 1676 ml IV Total 240 ml 113 ml 353 ml Output Urine Total 450 ml 680 ml 1530 ml Chest Tube Drainage Total 550 ml Drainage Total 100 ml 100 ml Other 2650 ml # Bowel Movements 0 Exam General: Alert, Cooperative, No Acute Distress Head: Normal Eyes: PERRLA, EOMI, Scleral Anicteric Nose: Mucous Membr Moist/Mullins Mouth: Mucous Membr Moist/Mullins Neck: Supple Chest & Lungs: Clear to auscultation bilat Cardiovascular: Regular Rate/Rhythm Abdomen: Non-tender, Non-distended, Normoactive bowel tones, Soft Extremities: No cyanosis/clubbing/edema bilat Neurological: Grossly Neurologically Intact, Cranial Nerves 2-12 Intact, Normal Speech Psych: Seems somewhat angry and frustrated IVs and Medications Medications Reviewed: Medications were reviewed in detail Lab and Diagnostics Result Diagram: 03/09/17 1013 03/10/17 0643 X-Rays, CTs and MRIs Date of Service: 03/09/17 0946 PROCEDURE: X-RAY CHEST, TWO VIEWS ([id number]) IMPRESSION: Increased right pleural effusion when compared with the prior study. Dictated by: Lyn Mckeon M.D. on 03/09/2017 at 10:32 Approved by: Lyn Mckeon M.D. on 03/09/2017 at 10:33 Date of Service: 03/09/17 1155 PROCEDURE: X-RAY CHEST ONE VIEW, PORTABLE ([id number]) IMPRESSION: Moderate right pneumothorax. The above findings were discussed with Dr. Marlon Garza on 03/09/17 at 12:03pm. Dictated by: Ofelia Barbosa M.D. on 03/09/2017 at 12:12 Approved by: Ofelia Barbosa M.D. on 03/09/2017 at 12:16 Date of Service: 03/09/17 1222 PROCEDURE: 1. CT guided right-sided chest tube placement. 2. Conscious sedation x20 minutes. IMPRESSION: 1. CT-guided right-sided chest tube placement for pneumothorax. 2. Extensive right lung opacity and overlying pleural caking, which may limit right lung expansion/pneumothorax evacuation. 3. Multiloculated right pleural effusion. Dictated by: Yasmany Becerra M.D. on 03/09/2017 at 14:56 Approved by: Yasmany Becerra M.D. on 03/09/2017 at 15:00 Date of Service: 03/09/17 1733 PROCEDURE: X-RAY CHEST ONE VIEW, PORTABLE ([id number]) IMPRESSION: Decreasing right pneumothorax. Dictated by: Yasmany Becerra M.D. on 03/09/2017 at 18:28 Approved by: Yasmany Becerra M.D. on 03/09/2017 at 18:28 Assessment & Plan 61 year old male with metastatic bronchogenic carcinoma post thoracentesis in the ED which was complicated by a right pneumothorax now post chest tube placement. # Acute right iatrogenic right pneumothorax after thoracentesis attempt in ED. Persisting - Post CT guided right-sided chest tube placement on 03/09/17 - Repeat chest x-ray this am shows persistent pneumothorax. - Apical thoracentesis attempted by surgery on 03/10. - Appreciate surgery consult. Will followup with recommendations - Pigtail drain removed earlier today with follow up CXR in afternoon pending. - Per surgery: "recommend arranging for outpatient PleurX catheter placement in the IR department for sometime next week prior to discharging this patient." # Metastatic bronchogenic carcinoma, present on admission. - Still undecided if he wants to pursue any further chemo or radiation therapy - Appreciate palliative care consult. Will followup with recommendations - Continue with supportive care # Acute hyponatremia. present on admission. 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 Dispo: 1-2 days GI Prophylaxis: Not indicated VTE Prophylaxis: Sub-Q Enoxaparin Resuscitation Status: Limited Interventions (DNI but OK to resuscitate. Discussed and verified with the patient.) Elijah Kilgore Mar 11, 2017 15:07
--- NOTE | 2017-03-11 15:57 | DRSVH ---
PROCEDURE: X-RAY CHEST ONE VIEW, PORTABLE ([id number]) INDICATIONS: rule out ptx TECHNIQUE: One view of the chest was acquired. COMPARISON: [facility], CR, XR CHEST 1VW (PORTABLE), 03/10/2017, 14:33. [facility], CR, XR CHEST 1VW (PORTABLE), 03/10/2017, 8:33. [facility], CR, XR CHEST 1VW (PORT ABLE), 03/10/2017, 6:32. [facility], CR, XR CHEST 1VW (PORTABLE), 03/09/2017, 19:55. [facility], CR, XR CHEST 1VW (PORTABLE), 03/09/2017, 17:48. [facility], CT, CT CH EST TUBE INSERTION, 03/09/2017, 13:37. [facility], CR, XR CHEST 1VW (PORTABLE), 03/09/2017 , 11:49. [facility], CR, XR CHEST 2VW, 03/09/2017, 9:50. [facility], CR, XR CHEST 1VW (PORTABLE), 03/11/2017, 8:15. FINDINGS: Surgical changes and devices: Right percutaneous pigtail basilar drains been removed. Lungs and pleura: There is a persistent moderate size right pneumothorax which appears unchanged in s ize from the prior exam. No new leftward shift of the mediastinum or diaphragmatic depression to sug gest tension. There is pleural thickening redemonstrated in the right hemithorax and persistent smal l right pleural effusion. Confluent opacities also demonstrated within the partially expanded right lung. Left lung remains clear. Mediastinum: Mediastinal contours appear unchanged. Heart size is normal. Bones and chest wall: No suspicious bony lesions. Overlying soft tissues appear unremarkable. IMPRESSION: 1. Removal of right basilar pigtail pleural drain and no significant interval change in moderate righ t pneumothorax. 2. Small right pleural effusion redemonstrated no confluent opacities throughout the right lung not s ignificantly changed. Dictated by: Timothy Euceda RRA Interpreted: Carol Lincoln MD on 03/11/2017 at 15:54 Transcribed by: CRISTHIAN on 03/11/2017 at 15:56 Approved by: Carol Lincoln MD, PhD on 03/11/2017 at 17:07
--- NOTE | 2017-03-11 16:07 | NUR ---
Social Work- Data and Assessment: SW received phone call from America Cross, , regarding terminal block assembler care planning for her . The pt and America are but were not living together prior to pt's admission. Pt's living situation was a motor home on a car lot near a car wash. The car wash closed down and pt's water hookup was turned off, so pt moved in with America temporarily. America understands that pt will likely discharge home with her, but she would like some assisted care/planning resources for the future. SW agreeable to provide pt and pt's with information. SW will continue to follow. Plan: Pt's America requesting assisted care planning resources. SW to provide these. Pt to likely discharge home with America, she is aware of this. HAZEL Marhsall
--- NOTE | 2017-03-11 17:02 | NUR ---
Mobility Pt. requested to go for a walk. Made one full loop around the [place] without any breaks. Tolerated activity very well. No c/o of dizziness or shortness of breath.
--- NOTE | 2017-03-11 17:41 | NUR ---
PAIN CONTROL/ACTIVITY Current PEDIATRIC PSYCHIATRIST settings has been effective for the patients pain control. Fentanyl patched changed this morning. PEDIATRIC PSYCHIATRIST continuos dose will be d/cd at 1800 per orders. Patient is aware and agreeable to this. He rates his pain between 3-4/10, which is tolerable for him. Tolerating liquids PO and his diet well. Denies nausea. No emesis noted. Patient continues to be on O2. PO2 in the high 90's on 2-3 L of O2. Denies SOB. Ambulated in the hallway with SBA. Gait is steady. Tolerated activity well. Denies SOB upon completion of ambulation. Dressing on his chest is CDI. Patient is on tele. Per singing telegram performer patient is on sinus rhythm; HR-90's. Care continues.
[2017-03-11] MEDS ORDERED: HYDROmorphone PCA 0.2 mg/mL 30 mL Inj IV PRN (18:00)
[2017-03-12] VITALS (10 sets, daily range): BP systolic 111–127; BP diastolic 65–83; PULSE 79–94; RESP 16–20; O2SAT 94–97
[2017-03-12] MEDS ORDERED: 0.9% Sodium Chloride 250 ML ONE (01:57)
[2017-03-12 05:50] LABS: Mean Corpuscular Hemoglobin 28.6 pg (27.0-35.0); Mean Corpuscular Volume 84.5 fL (81-100)
--- NOTE | 2017-03-12 06:33 | NUR ---
Pain Pt tolerating d/c of continuous HOME ENERGY RATER, controlled dose effective, pain is 3/10 which is tolerable. Pt slept all night. o2 sats high 90" on 2L o2 via NC. Pt ambulating independently.
[2017-03-12] MEDS: Senna-Docusate 8.6-50 mg Tablet PO SCH (07:40)
[2017-03-12] MEDS: Polyethylene Glycol (PEG) 17 Gm Powder PO PRN (07:41)
--- NOTE | 2017-03-12 07:57 | PCM.PNSURG ---
Subjective Visit Information: Reason for Visit Metastatic Lung Cell, Pneumothorax Surgery/Surgery Date Post-Op Day # Date of Admission: Mar 09, 2017 at 16:20 Hospital Day # Subjective: Stable after d/c of pigtail yesterday. CXR without significant change. Pleural effusion slowly re-collecting. Objective Vital Sign- Last 8 Hours Date Time Temp Pulse Resp B/P Pulse Ox O2 Delivery O2 Flow Rate FiO2 03/12/17 07:46 36.7 86 16 111/73 94 Nasal Cannula 2.00 03/12/17 07:46 Supplement Oxygen 03/12/17 06:09 16 97 03/12/17 05:50 36.5 84 16 124/82 94 Nasal Cannula 3.00 03/12/17 05:15 16 97 03/12/17 03:35 79 03/12/17 01:58 36.9 94 16 127/65 94 Nasal Cannula 3.00 03/12/17 00:30 16 97 Intake and Output- Last 8 Hour 03/12/17 Cumulative From/Thru 07:00 03/09/17 09:31 - 03/12/17 06:32 Intake Total 917 ml 4469 ml Output Total 1700 ml 7530 ml Balance -783 ml -3061 ml Intake Oral 800 ml 3916 ml IV Total 117 ml 553 ml Output Urine Total 1700 ml 4230 ml Chest Tube Drainage Total 550 ml Drainage Total 100 ml Other 2650 ml # Bowel Movements 0 0 General: Alert, Oriented X3, Cooperative, No Acute Distress Chest: Clear at L apex, minimal breath sounds at R apex consistent with known trapped lung. 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 General Surgery to sign off at this time. VTE Prophylaxis: Sub-Q Enoxaparin Resuscitation Status: Limited Interventions (DNI but OK to resuscitate. Discussed and verified with the patient.) Lou Concepcion MD Mar 12, 2017 07:57
--- NOTE | 2017-03-12 11:04 | NUR ---
1045- Home O2 eval done. Pt. on 2 lpm NC at rest. Sats 94-95%, HR 88, RR 18. No distress or increased WOB noted. Pt. placed on RA. 1049-At Rest sats 93%. Pt. sat up at edge of bed. No change. 1054- Ambulated pt. on RA. RA with exercise Pt. sats 93%. Pt. does not qualify for Home O2.
[2017-03-12] MEDS ORDERED: HYDR4TAB PO (12:00)
[2017-03-12] MEDS ORDERED: Fentanyl TOPICAL (12:02)
--- NOTE | 2017-03-12 14:01 | PCM.DIMED ---
Discharge Instructions Date of Service Mar 12, 2017 Dates of Hospitalization Mar 09, 2017 at 16:20 Discharge Diagnosis Discharge Diagnosis Primary diagnosis Acute right iatrogenic right pneumothorax after thoracentesis. Resolved Secondary diagnosis Metastatic bronchogenic carcinoma Acute hyponatremia Acute on subacute cancer pain Diet No restrictions Activity No restrictions Call your provider Shortness of breath Patient Instructions Please call 911 or go to the emergency department if you have trouble breathing again We will arrange for a procedure for your lungs to keep fluids draining Take the pain medications as instructed Follow-up Provider: Kaur Becker DO Follow-up with PCP in: 1 week Sergo Ellis MD Mar 12, 2017 14:01
[2017-03-12] MEDS ORDERED: DXM4T PO (14:02)
--- NOTE | 2017-03-12 16:00 | NUR ---
Palliative care note D/A: Case discussed with Dr. Espana today. Pt has discharged to his America's home. Dr. Espana has discussed hospice with pt and he is in favor. Dr. Espana has requested a [facility] info visit for pt in the community. Phone call to Joana to request. She will call pt at [facility] and arrange for info visit. Pt has already discharged. P: No further need for PC to follow. Erin HERNANDEZ, CCM
--- NOTE | 2017-03-12 16:10 | NUR ---
Social Work- Readiness for Discharge/Discharge Data: EMR reviewed. Pt is on day 3 of hospitalization for metastatic lung cell, pneumothorax per H&P. Pt to discharge today. Pt has been evaluated for home O2, pt does not require this at discharge. JOHN spoke with America, pt's , regarding hospice and assistance. SW provided resources to America regarding assistance and hospice. Palliative has set up a hospice info visit for the pt after discharge, pt is aware of Hospice number to follow up as well. Pt to discharge home with America via POV. No anticipated discharge needs. Assessment: Pt who will receive a hospice infovisit in the community Plan: Pt to discharge today. JOHN provided caregiving resources to pt and America, as well as hospice information. Pt to discharge home with America via POV. No anticipated discharge needs. HAZEL Marshall
--- NOTE | 2017-03-12 16:30 | NUR ---
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 Transitioned to PO Dilaudid. Dilaudid 8 mg PO has been effective for pain control. Patient rated his pain as 3-4/10, which is tolerable for him. Patients sats on room air has been in the low-mid 90's. Denies SOB. Evaluated by RT. Ambulated independently in the hallway. Gait is steady. Tolerated activity well. IV saline lock d/cd. Discharge instructions, care notes and prescription was given to the patient and he verbalized understanding. Hospice info was also given to the patient. Discharged to home with his and all his personal belonging. (Copy of D/C is in the chart).
--- NOTE | 2017-03-12 22:34 | PCM.PALLBR ---
Palliative Care Recommendation Summary of palliative recommendations: 03/12/17--Pain adequately controlled. Will continue fentanyl patch at 50 mcg Q3 d # 5 (2 week) and HM 4 mg 1-2 tabs Q 4 hr prn #160 given-reviewed dosing as needed. Cont. dexamethasone at 4 mg QD.Reviewed scripts for 2 weeks and hopefully for hospice to pick things up by then. Constipation- still no progress reviewed increasing senna to 2 tabs BID if needed for BM QD to QOD. Lung CA- metastatic Malignant effusion with dyspnea- now improved but ? raised about getting pleurex placed. Reviewed with Dr. Calista Aiken and will try and get this arranged early next week. GOC- he requests going home with hospice visit there. He is supportive of idea to engage hospice. Discussed case with Dr. Concepcion who thinks his lung is trapped by metastases and he will need a PleurX catheter placed by IR as an outpatient in near future. -Symptom management: 1. Pain: a. Continue HM SHEET METAL ENGINEER with 0.4mg q 10minutes for break-through pain until 1800H today, then decrease to 0.2mg q 10 minutes. b. Continue the continuous rate of 0.2mg/hour Hydromorphone until 1800H today and then stop it. c. Increase fentanyl patch to 50mcg/hr this morning (because he used 15mg hydromorphone IV in last 24 hours, which is equivalent to about 125mcg/hr patch) . d. Continue dexamethasone 4mg po q AM daily for bone pain and for appetite stimulation. 2. Constipation due to opiates. Last BM 3 days ago. Goal: daily BM as long as on daily opiate medications. a. Continue Senna-S 1 po BID scheduled daily. b. OK to use miralax or PEG at home (instead of Senna-S), but Dr. Hernandez counseled pt again today that these products require a lot more ingestion of water to be effective. So if he can't drink sufficient water, then he should be using Senna-S instead. Above pain medicine changes were discussed with Pharmacist who put the orders into [employer], and his floor RN to clarify my orders. Pain plan for tomorrow: reassess pain, hopefully can stop the SHEET METAL ENGINEER dilaudid on Wednesday and start oral dilaudid 4-8 mg q 4 hours prn break-through pain. -DPOA/Advanced Directives/POLST: 1. Code status: DNR/DNI, no FT. This is reviewed in detail and is consistent with his above request to "let nature take it's course". 2. POLST completed to reflect this and sent with pt. -Family/emotional support: excellent support from [place] and 3 daughters. [place] will not be visiting until after 6pm today (as she is working). -Spiritual support-not addressed today. Problems: End of Life Preferences DNR/DNI/NFT Disposition Pt has no buttermaker care or VA benefits. Pt has no Supplemental insurance. SW provided them with [employer] application. Pt currently has chest tube in place. SW discussed DPOA/ advanced directive, pt confirms this has been completed. Pt and have questions about Hospice,etc. SW discussed in morning rounds and MD states that he would like Palliative care to see pt to discuss goals of care. Resuscitation Status Resuscitation Status: DNR/DNI:Do Not Resuscitate/Intubate (DNI but OK to resuscitate. Discussed and verified with the patient.) POLST Updates/Changes Previous POLST?: No Artificially Admin Nutrition: No Artifical Nutrition by Tube POLST Discussed with: Patient POLST Review Outcome: New Form Completed . Advanced Care Planning Address: POLST, Code status change Pain: Moderate Symptom management: Constipation Total time 40 minutes; >50% face to face with patient and/or family, providing counselling regarding plans and recommendations, and in care coordination with his/her medical teams. I also spent an additional [ ] minutes counseling for advanced care planning with the patient/the patients family/the surrogate decision maker. copies to: Kaur Becker DO; Calista Aiken MD Palliative Brief Note Date of Service Mar 12, 2017 . [address] Becker with dx of lung CA metastatic but requesting only comfort path. Course complicated with malignant pleural effusion which was tapped but developed a pneumothorax. He had a chest tube placed that was removed yesterday. He ambulated with maintaining O2 sats without O2 and is now with controlled pain and denies dyspnea. He does have a productive cough. Constipation since hospitalization- has been using glycolax with +/- effect. He apparently was taking MS contin prior to admission initially with out that much pain but that accelerated in severity and he required SHEET METAL ENGINEER HM during this hospitalization. He feels his pain is well controlled with d/c of SHEET METAL ENGINEER this AM and use of HM 4 mg orally. O: R chest tube site- clear HRR no edema neuro- amb in [place] , mentation wnl, decisional Amy Espana MD Mar 12, 2017 22:34
--- NOTE | 2017-03-13 01:23 | PCM.DC.MED ---
Discharge Summary Date of Service Mar 13, 2017 Dates of Hospitalization Date of Hospital Admission Mar 09, 2017 at 16:20 Date of Discharge: Mar 12, 2017 Providers: Admitting Physician: Elijah Kilgore Primary Care Physician: Kaur Becker DO Attending Physician: Elijah Kilgore Diagnosis at Time of Discharge Diagnosis at Time of Discharge Primary diagnosis Acute right iatrogenic right pneumothorax after thoracentesis. Resolved Secondary diagnosis Metastatic bronchogenic carcinoma Acute hyponatremia Acute on subacute cancer pain Consultations General surgery: Dr Lou Concepcion Palliative care: Dr Hernandez Procedures XRay, CTs & MRIs Date of Service: 03/09/17 0946 PROCEDURE: X-RAY CHEST, TWO VIEWS ([id number]) IMPRESSION: Increased right pleural effusion when compared with the prior study. Dictated by: Lyn Mckeon M.D. on 03/09/2017 at 10:32 Approved by: Lyn Mckeon M.D. on 03/09/2017 at 10:33 Date of Service: 03/09/17 1155 PROCEDURE: X-RAY CHEST ONE VIEW, PORTABLE ([id number]) IMPRESSION: Moderate right pneumothorax. The above findings were discussed with Dr. Marlon Garza on 03/09/17 at 12:03pm. Dictated by: Ofelia Barbosa M.D. on 03/09/2017 at 12:12 Approved by: Ofelia Barbosa M.D. on 03/09/2017 at 12:16 Date of Service: 03/09/17 1222 PROCEDURE: 1. CT guided right-sided chest tube placement. 2. Conscious sedation x20 minutes. IMPRESSION: 1. CT-guided right-sided chest tube placement for pneumothorax. 2. Extensive right lung opacity and overlying pleural caking, which may limit right lung expansion/pneumothorax evacuation. 3. Multiloculated right pleural effusion. Dictated by: Yasmany Becerra M.D. on 03/09/2017 at 14:56 Approved by: Yasmany Becerra M.D. on 03/09/2017 at 15:00 Date of Service: 03/09/17 1733 PROCEDURE: X-RAY CHEST ONE VIEW, PORTABLE ([id number]) IMPRESSION: Decreasing right pneumothorax. Dictated by: Yasmany Becerra M.D. on 03/09/2017 at 18:28 Approved by: Yasmany Becerra M.D. on 03/09/2017 at 18:28 Brief History 61 year old male with a history of metastatic bronchogenic carcinoma presented to the ED on 03/09, complaining of right sided chest pain. His chest x-ray showed "increased right pleural effusion". He underwent thoracentesis in the ED which was complicated by a right pneumothorax. CT guided right-sided chest tube placement was performed by interventional radiology and patient was admitted 03/09 to the hospitalist service for further management. Hospital Course: Today is Hospital Day 2 and Palliative Care was asked to address pain, constipation and goals of care. Subjective: Pt reports that his pain is in chest wall, around area of chest tube , but it was present, long-standing before the CT placement yesterday. He says at worse it is 10/10, sharp and sudden onset and at best it is "bearable" at 3-4 /10 and duller. It is present at rest and aggravated by moving about in bed or changing position from bed to sit at side of bed to stand. He can move around but has to pace himself and stop and start to wait for pain to subside. The button (HUMAN RESOURCES ADMINISTRATOR with Hydromorphone 0.4mg q 10min) helps, but he needs to use it a lot to get relief. Hospital Course 1 Acute right iatrogenic right pneumothorax after thoracentesis attempt in ED. Persisting - Post CT guided right-sided chest tube placement on 03/09/17 - Apical thoracentesis attempted by surgery on 03/10. - Pigtail drain removed with good results - Per surgery: "recommend arranging for outpatient PleurX catheter placement in the IR department for sometime next week prior to discharging this patient." - Spoke to Dr Mckeon concerning this, patient has been scheduled for PleurX placement next Wednesday03/15/17 @ 8:[address] Becerra - I filled the paperwork for this procedure and spoke to Dr Espana about ordering Vacutaners post procedure 2 Metastatic bronchogenic carcinoma, present on admission. - Still undecided if he wants to pursue any further chemo or radiation therapy - POLST form filled with Dr Espana, DNR/DNI 3 Acute hyponatremia. present on admission. 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 Ongoing - Continue with pain medications initiated by Palliative care (details below) Continue HM HUMAN RESOURCES ADMINISTRATOR with 0.4mg q 10minutes for break-through pain until 1800H today , then decrease to 0.2mg q 10 minutes. b. Continue the continuous rate of 0.2mg/hour Hydromorphone until 1800H today and then stop it. c. Increase fentanyl patch to 50mcg/hr this morning (because he used 15mg hydromorphone IV in last 24 hours, which is equivalent to about 125mcg/hr patch) . d. Continue dexamethasone 4mg po q AM daily for bone pain and for appetite stimulation. 2. Constipation due to opiates. Last BM 3 days ago. Goal: daily BM as long as on daily opiate medications. a. Continue Senna-S 1 po BID scheduled daily. b. OK to use miralax or PEG at home (instead of Senna-S), but Dr. Hernandez counseled pt again today that these products require a lot more ingestion of water to be effective. So if he can't drink sufficient water, then he should be using Senna-S instead. Exam Vital Signs (Last) Date Time Temp Pulse Resp B/P Pulse Ox O2 Delivery O2 Flow Rate FiO2 03/12/17 13:47 20 94 03/12/17 13:43 36.7 87 126/83 Room Air 03/12/17 07:46 2.00 Exam General: Alert, Cooperative, No Acute Distress Head: Normal Eyes: PERRLA, EOMI, Scleral Anicteric Nose: Mucous Membrane Moist/[place] Mouth: Mucous Membrane Moist/[place] Neck: Supple Chest & Lungs: Clear to auscultation bilateral Cardiovascular: Regular Rate/Rhythm Abdomen: Non-tender, Non-distended, Normoactive bowel tones, Soft Extremities: No cyanosis/clubbing/edema bilateral Neurological: Grossly Neurologically Intact, Cranial Nerves 2-12 Intact, Normal Speech Psych: Seems somewhat angry and frustrated Test 03/09/17 10:13 03/09/17 12:55 03/12/17 05:35 Neutrophils (%) (Auto) 78.0% (40-74) Lymphocytes (%) (Auto) 7.6% (14-46) Monocytes (%) (Auto) 9.2% (4-12) Eosinophils (%) (Auto) 4.5% (0-5) Basophils (%) (Auto) 0.3% (0-3) Prothrombin Time 10.4sec (8.1-12.5) Prothromb Time International Ratio 0.97ratio Total Bilirubin 0.4mg/dL (0.0-1.2) Aspartate Amino Transf (AST/SGOT) 18U/L (0-50) Alanine Aminotransferase (ALT/SGPT) 10U/L (0-44) Alkaline Phosphatase 96U/L (25-160) Troponin T < 0.010ug/L (0.0-0.011) Pro-B-Type Natriuretic Peptide 82.89pg/mL (0-210) Total Protein 8.2g/dL (6.4-8.4) Albumin 3.6g/dL (3.4-5.0) Hold Vicente Top Tube Received (Received) Urine Color Red (YELLOW) Urine Appearance Turbid (CLEAR,HAZY) Urine pH 7.5 (5.0-8.0) Urine Specific [place] 1.015 (1.003-1.035) Urine Protein 300mg/dL (NEG,TRACE) Urine Glucose (UA) 100mg/dL (NEGATIVE) Urine Ketones Negativemg/dL (NEGATIVE) Urine Occult Blood Large (NEGATIVE) Urine Nitrite Negative (NEGATIVE) Urine Bilirubin Negative (NEGATIVE) Urine Urobilinogen Normalmg/dL (NORMAL) Urine Leukocyte Esterase Trace (NEGATIVE) Urine RBC Packed/hpf (0-2) Urine WBC 11-50/hpf (0-5) Urine Epithelial Cells Occasional/hpf (NONE-MOD) Urine Crystals None seen (NONE SEEN) Urine Bacteria Few/hpf (NONE-FEW) Urine Hyaline Casts None/lpf (NONE) Urine Granular Casts None seen (NONE SEEN) Urine Waxy Casts None seen (NONE SEEN) Urine Red Blood Cell Casts None seen (NONE SEEN) Urine White Blood Cell Casts None seen (NONE SEEN) Urine Mucus None seen (None Seen) Urine Trichomonas None seen (NONE SEEN) Urine Yeast None (NONE SEEN) Urinalysis Comment None Urine Culture Reflexed Indicated White Blood Count 16.0th/mm3 (3.8-10.1) Red Blood Count 4.76mil/mm3 (4.40-5.80) Hemoglobin 13.6g/dL (13.8-17.2) Hematocrit 40.2% (41.0-50.0) Mean Corpuscular Volume 84.5fL (81-100) Mean Corpuscular Hemoglobin 28.6pg (27.0-35.0) Mean Corpuscular Hemoglobin Concent 33.8% (32.0-37.0) Red Cell Distribution Width 13.6% (12.3-15.4) Platelet Count 378bil/L (150-400) Sodium Level 131mEq/L (134-144) Potassium Level 4.5mEq/L (3.5-5.2) Chloride Level 92mEq/L (97-108) Carbon Dioxide Level 26mmol/L (18-29) Blood Urea Nitrogen 11mg/dL (6-24) Creatinine 0.40mg/dL (0.76-1.27) Estimat Glomerular Filtration Rate 234mL/min (>59) Glucose Level 107mg/dL (60-99) Calcium Level 9.2mg/dL (8.5-10.1) Discharge Medications Discharge Medications ([Fentanyl]) 1 PATCH PATCH 1 PATCH TOPICAL Q3D Prescribed by: JOHNNY ESPANA MD Dexamethasone (Dexamethasone) 4 Mg Tablet 4 MG PO DAILY Prescribed by: ROJELIO GILES MD Hydrocodone-Acetaminophen 5-325 mg (Hydrocodone-Acetaminophen 5-325 mg) 1 Each Tablet 1-2 TAB PO Q6H (Reported) As needed Hydromorphone (Hydromorphone) 4 Mg Tablet 4-8 MG PO Q4H PRN PRN Pain for pain or SOB Prescribed by: JOHNNY ESPANA MD Followup Plan Disposition: 40 minutes spend Discharge Diet: No restrictions Discharge Activity: No restrictions Patient Instructions Please call 911 or go to the emergency department if you have trouble breathing again We will arrange for a procedure for your lungs to keep fluids draining Take the pain medications as instructed Follow-up Provider: Kaur Becker DO Follow-up with PCP in: 1 week copies to: Kaur Becker Malik MD Mar 13, 2017 01:23
--- NOTE | 2017-03-15 16:00 | NUR ---
Palliative care note D/A: Case discussed with Dr. Espana who wonders as to when [facility] is planning on info visit. Phone call to Joana reveals that visit will be on Wednesday03/19/17. Jovi Rich informed, she is working on attempting to get pt pleurex prior to signing on to Hospice. P: Palliative care to assist with pleurex placement. Erin HERNANDEZ, CCM
--- NOTE | 2017-03-16 09:18 | NUR ---
Palliative care note D/A: Case discussed further with this am. She was able to find out that Dr. Lino had already set up Pleurex catheter appt with IR for this pt on 03/17/17. Phone call to Joana at [facility] to inform. P: Palliative care to follow. Erin HERNANDEZ CCM Addendum: 03/16/17 at 1230 by DOUGLAS YOO Palliative care note amendment POLST scanned and sent to Joana at [facility]. Erin HERNANDEZ [facility]
[2017-03-16] MEDS ORDERED: ONDA4TAB6 PO (10:41)
[2017-03-16] MEDS ORDERED: [UNRECOGNIZED DRUG - CODE] PO (10:41)
[2017-03-16] MEDS ORDERED: POLY17PO2 PO (10:41)
== END 2017-03-12 16:26 | disposition home or self-care (01) | DRG 200 ==
LOC: SED 09:27 → OFED 16:20 → OSC 16:25
PROVIDERS: ADMIT Internal Medicine; ATTEND Internal Medicine
PROC: 0W9930Z Drainage of Right Pleural Cavity with Drainage Device, Percutaneous Approach (ICD-10-PCS; principal; 2017-03-09)
DX: J95.811 Postprocedural pneumothorax (principal); C34.11 Malignant neoplasm of upper lobe, right bronchus or lung; C79.51 Secondary malignant neoplasm of bone; J91.0 Malignant pleural effusion; E22.2 Syndrome of inappropriate secretion of antidiuretic hormone; G89.3 Neoplasm related pain (acute) (chronic); F17.210 Nicotine dependence, cigarettes, uncomplicated; Z51.5 Encounter for palliative care

== ENCOUNTER 2017-03-17 01:13 | Day surgery (SDC) | payer MEDICARE ==
[~2017-03-17 01:13] MED LIST changes: +DXM4T PO; +ONDA4TAB6 PO; +POLY17PO2 PO; +[UNRECOGNIZED DRUG - CODE] PO
[2017-03-17] MEDS ORDERED: Heparin 5,000 Units/500 mL NS Premix IV ONE (08:34)
[2017-03-17 08:54] VITALS: BP 123/76; PULSE 87; RESP 18; O2SAT 96
[2017-03-17 09:20] LABS: INR 1.03 ratio
[2017-03-17] MEDS ORDERED: fentaNYL-PF 50 mCg/mL 2 mL Inj ONE (09:28)
[2017-03-17 09:50] VITALS: BP 121/78; PULSE 86; RESP 18; O2SAT 94
[2017-03-17 09:55] VITALS: BP 130/75; PULSE 86; RESP 18; O2SAT 95
--- NOTE | 2017-03-17 09:58 | NUR ---
Patient returned from procedure, procedure not completed as there was not enough pleural fluid collection for pleurx drainage tube placement.
--- NOTE | 2017-03-17 10:17 | NUR ---
Dr Becerra has spoken to patient and spouse at the bedside.Discharge instructions given, instructions for how to reschedule given as well as pleurx drainage tube information packet that includes a CD and paper instructions. I encouraged patient's spouse to read prior to next procedure.He is discharged ambulatory.
--- NOTE | 2017-03-17 10:59 | DRSVH ---
PROCEDURE: Limited ultrasound examination INDICATIONS: PLEURAL EFFUSION COMPARISON: None. FINDINGS: Limited ultrasound examination demonstrates a normal amount of multiloculated right pleura l fluid. IMPRESSION: Small amount of multiloculated right pleural fluid. Pleurx catheter could not be placed. Dictated by: Yasmany Becerra M.D. on 03/17/2017 at 10:57 Approved by: Yasmany Becerra M.D. on 03/17/2017 at 10:58
== END 2017-03-17 23:59 | disposition home or self-care (01) ==
LOC: SOUO 01:13
PROVIDERS: ATTEND Radiology Diagnostic Radiology
DX: J90 Pleural effusion, not elsewhere classified (principal); Z53.09 Procedure and treatment not carried out because of other contraindication; F17.210 Nicotine dependence, cigarettes, uncomplicated
CPT/HCPCS: 32550; 75989; 85610; 99152; C1769; J1644; J2250; J3010